=== PATIENT | female | born 1980 | race Caucasian/White ===

== ENCOUNTER 2016-10-05 08:40 | Inpatient (IN) | payer MEDICAID, SELFPAY ==
[~2016-10-05] VITALS: Ht 170.2 cm; Wt 68.0 kg
[~2016-10-05 08:40] MED LIST: LITH300C3 PO; QUET200T PO
[2016-10-05] MEDS ORDERED: LORazepam 2 MG TABLET PO ONE (10:00)
[2016-10-05] MEDS ORDERED: ZIPRASIDONE HCL 20 MG CAPSULE PO ONE (10:00)
[2016-10-05 10:04] LABS: BASOPHILS % (AUTO) 0.2 % (0.0-2.0); EOSINOPHILS % (AUTO) 1.6 % (1.0-6.0); HEMATOCRIT 41.2 % (36-46); HEMOGLOBIN 13.7 g/dL (12.0-16.0); LYMPHOCYTES # (AUTO) 1.2 K/uL (1.0-4.8); LYMPHOCYTES % (AUTO) 16.5 % (22.0-44.0); MEAN CORPUSCULAR HEMOGLOBIN 30.2 pg (26.0-34.0); MEAN CORPUSCULAR HGB CONC 33.3 G/dL (31.0-37.0); MEAN CORPUSCULAR VOLUME 91 fL (80-100); MONOCYTES # (AUTO) 0.4 K/uL (0.1-1.0); MONOCYTES % (AUTO) 5.4 % (2.0-9.0); NEUTROPHILS # (AUTO) 5.4 K/uL (1.8-7.7); NEUTROPHILS % (AUTO) 76.3 % (40.0-70.0); PLATELET COUNT (AUTO) 258 K/uL (150-450); RED BLOOD CELL COUNT(AUTO) 4.55 MIL/uL (4.00-5.20); RED CELL DISTRIBUTION WIDTH 12.5 % (11.5-14.5); WHITE BLOOD COUNT (AUTO) 7.1 K/uL (4.5-11.0)
[2016-10-05 10:16] LABS: ANION GAP 9 mmol/L (8-16); CALCIUM, TOTAL 8.8 mg/dL (8.8-10.5); CARBON DIOXIDE 26 mmol/L (22-29); CHLORIDE 104 mmol/L (98-107); GLOMERULAR FILTR. RATE CALC > 60 mL/min (>60); POTASSIUM 3.8 mmol/L (3.5-5.1); SODIUM SERUM 139 mmol/L (136-145); UREA NITROGEN, BLOOD 8 mg/dL (7-18)
[2016-10-05 10:20] LABS: ALANINE AMINOTRANSFERASE 18 U/L (12-78); ALBUMIN 3.6 g/dL (3.4-5.0); ASPARTATE AMINOTRANSFERASE 17 U/L (15-37); BILIRUBIN,TOTAL 0.8 mg/dL (0.1-1.0); TOTAL PROTEIN, SERUM 6.8 g/dL (6.4-8.2)
[2016-10-05 10:25] LABS: LITHIUM < 0.20 mmol/L (0.60-1.20)
[2016-10-05] MEDS ORDERED: ZOLPIDEM TARTRATE 10 MG TABLET PO PRN (10:45)
[2016-10-05] MEDS ORDERED: LORazepam 2 MG TABLET PO PRN (10:45)
[2016-10-05] MEDS ORDERED: QUEtiapine FUMARATE 100 MG TABLET PO PRN (10:45)
[2016-10-05 13:31] VITALS: BP 133/72
[2016-10-05] MEDS ORDERED: INFLUENZA VIRUS VACCINE QVS 2016-17 (3YR+)/PF 60 MCG/0.5 ML SYRINGE IM ONE (14:00)
[2016-10-05] MEDS ORDERED: PROMETHAZINE HCL 25 MG TABLET PO PRN (14:30)
[2016-10-05] MEDS ORDERED: HydrOXYzine PAMOATE 50 MG CAPSULE PO PRN (14:30)
[2016-10-05] MEDS ORDERED: MAG HYDROX/AL HYDROX/SIMETH ES 30 ML SUSPENSION UDCUP PO PRN (14:30)
[2016-10-05] MEDS ORDERED: TUBERCULIN, PURIFIED PROTEIN DERIVATIVE 5 TU/0.1 ML SYG ID ONE (14:30)
[2016-10-05] MEDS ORDERED: ACETAMINOPHEN 325 MG TABLET PO PRN (14:30)
[2016-10-05] MEDS ORDERED: GuaiFENesin/D-METHORPHAN [SUGAR-FREE] 200-20MG/10 ML SYRUP UDCUP PO PRN (14:30)
[2016-10-05] MEDS ORDERED: LOPERAMIDE HCL 2 MG CAPSULE PO PRN (14:30)
[2016-10-05] MEDS ORDERED: MAGNESIUM HYDROXIDE SUSPENSION 30 ML UDCUP PO PRN (14:30)
[2016-10-05 16:02] VITALS: BP 108/60
[2016-10-05] MEDS: THIAMINE HCL 100 MG TABLET PO SCH (16:26)
[2016-10-05] MEDS: LITHIUM CARBONATE 600 MG CAPSULE PO SCH (16:26)
[2016-10-05] MEDS: DIVALPROEX SODIUM 250 MG ER TABLET PO SCH (20:29)
[2016-10-05] MEDS ORDERED: QUEtiapine FUMARATE 200 MG TABLET PO SCH (21:00)
[2016-10-06 07:09] VITALS: BP 122/70
[2016-10-06 08:49] VITALS: BP 104/67
[2016-10-06] MEDS: THIAMINE HCL 100 MG TABLET PO SCH ×2 (09:30→16:25)
[2016-10-06] MEDS: MULTIVITAMINS WITH MINERALS, THERAPEUTIC TABLET PO SCH (09:30)
[2016-10-06] MEDS: LITHIUM CARBONATE 600 MG CAPSULE PO SCH ×2 (09:30→16:25)
[2016-10-06] MEDS: FOLIC ACID 1 MG TABLET PO SCH (09:41)
[2016-10-06 16:20] VITALS: BP 112/74
[2016-10-06] MEDS: DIVALPROEX SODIUM 250 MG ER TABLET PO SCH (20:31)
[2016-10-06] MEDS: QUEtiapine FUMARATE 200 MG TABLET PO SCH (20:32)
[2016-10-07 02:21] VITALS: BP 123/71
[2016-10-07 07:46] LABS: LITHIUM 0.49 mmol/L (0.60-1.20)
[2016-10-07 08:32] VITALS: BP 110/65
[2016-10-07] MEDS: MULTIVITAMINS WITH MINERALS, THERAPEUTIC TABLET PO SCH ×2 (09:00→09:25)
[2016-10-07] MEDS: THIAMINE HCL 100 MG TABLET PO SCH ×2 (09:25→16:14)
[2016-10-07] MEDS: FOLIC ACID 1 MG TABLET PO SCH (09:25)
[2016-10-07] MEDS: LITHIUM CARBONATE 600 MG CAPSULE PO SCH ×2 (09:25→16:14)
[2016-10-07 16:00] VITALS: BP 106/63
[2016-10-07] MEDS: DIVALPROEX SODIUM 250 MG ER TABLET PO SCH (20:28)
[2016-10-07] MEDS: QUEtiapine FUMARATE 200 MG TABLET PO SCH (21:00)
[2016-10-08 06:27] VITALS: BP 110/64
[2016-10-08 08:39] VITALS: BP 113/63
[2016-10-08] MEDS: THIAMINE HCL 100 MG TABLET PO SCH ×2 (09:15→16:24)
[2016-10-08] MEDS: MULTIVITAMINS, THERAPEUTIC TABLET PO SCH (09:15)
[2016-10-08] MEDS: LITHIUM CARBONATE 600 MG CAPSULE PO SCH ×2 (09:15→16:24)
[2016-10-08] MEDS: FOLIC ACID 1 MG TABLET PO SCH (09:15)
[2016-10-08 16:47] VITALS: BP 126/64
[2016-10-08] MEDS: DIVALPROEX SODIUM 250 MG ER TABLET PO SCH (20:39)
[2016-10-08] MEDS: QUEtiapine FUMARATE 200 MG TABLET PO SCH (21:00)
[2016-10-09 07:15] VITALS: BP 117/80
[2016-10-09 08:47] VITALS: BP 104/59
[2016-10-09] MEDS: FOLIC ACID 1 MG TABLET PO SCH (09:22)
[2016-10-09] MEDS: THIAMINE HCL 100 MG TABLET PO SCH ×2 (09:22→16:14)
[2016-10-09] MEDS: LITHIUM CARBONATE 600 MG CAPSULE PO SCH ×2 (09:23→16:14)
[2016-10-09] MEDS: MULTIVITAMINS, THERAPEUTIC TABLET PO SCH (09:23)
[2016-10-09] MEDS ORDERED: DIVA250T45 PO (14:43)
[2016-10-09] MEDS ORDERED: LITH600 PO (14:43)
[2016-10-09] MEDS ORDERED: QUET200T29 PO (14:43)
[2016-10-09 16:06] VITALS: BP 109/59
[2016-10-09] MEDS: DIVALPROEX SODIUM 250 MG ER TABLET PO SCH (20:15)
[2016-10-09] MEDS: QUEtiapine FUMARATE 200 MG TABLET PO SCH (21:00)
[2016-10-10 01:08] VITALS: BP 110/64
[2016-10-10] MEDS: MULTIVITAMINS, THERAPEUTIC TABLET PO SCH (08:32)
[2016-10-10] MEDS: THIAMINE HCL 100 MG TABLET PO SCH (08:32)
[2016-10-10] MEDS: LITHIUM CARBONATE 600 MG CAPSULE PO SCH (08:32)
[2016-10-10] MEDS: FOLIC ACID 1 MG TABLET PO SCH (08:32)
[2016-10-10 08:44] VITALS: BP 113/73
[2016-10-10] MEDS ORDERED: DIVA250T45 PO (10:20)
[2016-10-10] MEDS ORDERED: QUET200T PO (10:20)
== END 2016-10-10 14:50 | disposition home or self-care (01) | DRG 885 ==
LOC: EEVIPCON 08:42 → EMS 08:42 → B3A 11:34
PROVIDERS: ADMIT Psychiatry & Neurology Psychiatry; ATTEND Psychiatry & Neurology Psychiatry
DX: F25.0 Schizoaffective disorder, bipolar type (principal); F17.210 Nicotine dependence, cigarettes, uncomplicated; G40.909 Epilepsy, unspecified, not intractable, without status epilepticus; M25.559 Pain in unspecified hip; Z88.8 Allergy status to other drugs, medicaments and biological substances; Z79.899 Other long term (current) drug therapy; Z59.0 Homelessness; Z98.890 Other specified postprocedural states; Z85.820 Personal history of malignant melanoma of skin; Z28.21 Immunization not carried out because of patient refusal; Z91.048 Other nonmedicinal substance allergy status; Z91.19 Patient's noncompliance with other medical treatment and regimen
CPT/HCPCS: 99285; A0429; G0480

== ENCOUNTER 2018-02-28 10:14 | Inpatient (IN) | payer MEDICARE ==
[~2018-02-28] VITALS: Ht 172.7 cm; Wt 69.4 kg
[~2018-02-28 10:14] MED LIST changes: +DIVA250T45 PO; +LITH600 PO; +QUET200T29 PO
[2018-02-28 10:21] VITALS: BP 130/87
[2018-02-28] MEDS ORDERED: ZOLPIDEM TARTRATE 10 MG TABLET PO PRN (10:30)
[2018-02-28] MEDS ORDERED: SPIR50 PO (11:41)
[2018-02-28] MEDS ORDERED: MINO100 PO (11:41)
[2018-02-28 13:10] VITALS: BP 133/97
[2018-02-28 16:16] VITALS: BP 113/79
[2018-02-28] MEDS: LORazepam 2 MG TABLET PO PRN (16:52)
[2018-02-28] MEDS: DIVALPROEX SODIUM 500 MG ER TABLET PO SCH (21:17)
[2018-03-01 08:15] VITALS: BP 118/91
[2018-03-01 08:56] LABS: BASOPHILS % (AUTO) 0.8 % (0.0-2.0); EOSINOPHILS % (AUTO) 3.8 % (1.0-6.0); HEMATOCRIT 43.4 % (36-46); HEMOGLOBIN 15.1 g/dL (12.0-16.0); LYMPHOCYTES # (AUTO) 1.7 K/uL (1.0-4.8); LYMPHOCYTES % (AUTO) 47.9 % (22.0-44.0); MEAN CORPUSCULAR HEMOGLOBIN 31.8 pg (26.0-34.0); MEAN CORPUSCULAR HGB CONC 34.8 G/dL (31.0-37.0); MEAN CORPUSCULAR VOLUME 91 fL (80-100); MONOCYTES # (AUTO) 0.4 K/uL (0.1-1.0); NEUTROPHILS # (AUTO) 1.2 K/uL (1.8-7.7); NEUTROPHILS % (AUTO) 35.5 % (40.0-70.0); PLATELET COUNT (AUTO) 219 K/uL (150-450); RED BLOOD CELL COUNT(AUTO) 4.76 MIL/uL (4.00-5.20); RED CELL DISTRIBUTION WIDTH 13.3 % (11.5-14.5)
[2018-03-01 09:35] LABS: ALANINE AMINOTRANSFERASE 30 U/L (12-78); ALBUMIN 3.3 g/dL (3.4-5.0); ALKALINE PHOSPHATASE 43 U/L (46-116); ANION GAP 5 mmol/L (8-16); ASPARTATE AMINOTRANSFERASE 23 U/L (15-37); BILIRUBIN,TOTAL 0.6 mg/dL (0.1-1.0); CALCIUM, TOTAL 8.8 mg/dL (8.8-10.5); CARBON DIOXIDE 30 mmol/L (22-29); CHLORIDE 107 mmol/L (98-107); CHOL/HDL RATIO 3.2 (3.9-5.7); CHOLESTEROL 167 mg/dL (131-200); CREATININE 0.79 mg/dL (0.60-1.30); FREE T4 (FREE THYROXINE) 0.74 ng/dL (0.76-1.46); GLOMERULAR FILTR. RATE CALC > 60 mL/min (>60); GLUCOSE,RANDOM 61 mg/dL (70-110); HDL CHOLESTEROL 53 mg/dL (40-60); LDL CHOL (CALC.) 96 mg/dL (0-130); POTASSIUM 3.8 mmol/L (3.5-5.1); SODIUM SERUM 142 mmol/L (136-145); THYROID STIMULATING HORMONE 1.92 uIU/mL (0.36-3.74); TOTAL PROTEIN, SERUM 6.5 g/dL (6.4-8.2); TRIGLYCERIDES 90 mg/dL (15-150); UREA NITROGEN, BLOOD 18 mg/dL (7-18)
[2018-03-01] MEDS ORDERED: ONDANSETRON HCL 4 MG TABLET PO PRN (11:15)
[2018-03-01] MEDS ORDERED: MAG HYDROX/AL HYDROX/SIMETH ES 30 ML SUSPENSION UDCUP PO PRN (11:15)
[2018-03-01] MEDS ORDERED: ACETAMINOPHEN 325 MG TABLET PO PRN (11:15)
[2018-03-01] MEDS ORDERED: MAGNESIUM HYDROXIDE SUSPENSION 30 ML UDCUP PO PRN (11:15)
[2018-03-01] MEDS ORDERED: IBUPROFEN 400 MG TABLET PO PRN (11:15)
[2018-03-01] MEDS ORDERED: ALBUTEROL SULFATE HFA 90 MCG/PUFF 8 GM INHALER IH PRN (11:15)
[2018-03-01] MEDS ORDERED: CloNIDine HCL 0.1 MG TABLET PO PRN (11:15)
[2018-03-01] MEDS ORDERED: LOPERAMIDE HCL 2 MG CAPSULE PO PRN (11:15)
[2018-03-01] MEDS ORDERED: DOCUSATE SODIUM 100 MG CAPSULE PO PRN (11:15)
[2018-03-01] MEDS ORDERED: PETROLATUM,WHITE 71 GM JELLY TP PRN (11:15)
[2018-03-01] MEDS: SPIRONOLACTONE 50 MG TABLET PO SCH (16:34)
[2018-03-01] MEDS: LORazepam 2 MG TABLET PO PRN (16:34)
[2018-03-01 16:48] VITALS: BP 107/64
[2018-03-01] MEDS: DIVALPROEX SODIUM 500 MG ER TABLET PO SCH (20:34)
[2018-03-02 02:35] VITALS: BP 124/83
[2018-03-02 08:28] VITALS: BP 122/74
[2018-03-02] MEDS: SPIRONOLACTONE 50 MG TABLET PO SCH ×2 (08:33→16:34)
[2018-03-02] MEDS: ARIPiprazole 10 MG TABLET PO SCH (08:33)
[2018-03-02] MEDS: NICOTINE 14 MG/24 HOUR PATCH TD SCH (08:33)
[2018-03-02] MEDS: MINOCYCLINE HCL 100 MG CAPSULE PO SCH (08:33)
[2018-03-02 16:05] VITALS: BP 113/90
[2018-03-02] MEDS: LORazepam 2 MG TABLET PO PRN (19:44)
[2018-03-03 08:35] VITALS: BP 124/76
[2018-03-03] MEDS: ARIPiprazole 10 MG TABLET PO SCH (08:37)
[2018-03-03] MEDS: SPIRONOLACTONE 50 MG TABLET PO SCH ×2 (08:37→16:22)
[2018-03-03] MEDS: MINOCYCLINE HCL 100 MG CAPSULE PO SCH (08:37)
[2018-03-03] MEDS: NICOTINE 14 MG/24 HOUR PATCH TD SCH (08:42)
[2018-03-03 08:50] LABS: BASOPHILS % (AUTO) 0.9 % (0.0-2.0); EOSINOPHILS % (AUTO) 2.7 % (1.0-6.0); HEMATOCRIT 46.8 % (36-46); HEMOGLOBIN 16.5 g/dL (12.0-16.0); LYMPHOCYTES # (AUTO) 2.4 K/uL (1.0-4.8); LYMPHOCYTES % (AUTO) 60.8 % (22.0-44.0); MEAN CORPUSCULAR HEMOGLOBIN 32.1 pg (26.0-34.0); MEAN CORPUSCULAR HGB CONC 35.2 G/dL (31.0-37.0); MEAN CORPUSCULAR VOLUME 91 fL (80-100); MONOCYTES # (AUTO) 0.3 K/uL (0.1-1.0); MONOCYTES % (AUTO) 8.6 % (2.0-9.0); NEUTROPHILS # (AUTO) 1.1 K/uL (1.8-7.7); PLATELET COUNT (AUTO) 238 K/uL (150-450); RED BLOOD CELL COUNT(AUTO) 5.14 MIL/uL (4.00-5.20); RED CELL DISTRIBUTION WIDTH 13.2 % (11.5-14.5)
[2018-03-03 08:59] LABS: HEMOGLOBIN A1C 5.1 % (4.5-6.2)
[2018-03-03 09:00] LABS: BILIRUBIN,URINE NEGATIVE (NEGATIVE); GLUCOSE, URINE (UA) NEGATIVE (NEGATIVE); KETONES,URINE NEGATIVE (NEGATIVE); LEUKOCYTE ESTERASE ,URINE NEGATIVE (NEGATIVE); NITRATE,URINE NEGATIVE (NEGATIVE); OCCULT BLOOD,URINE TRACE (NEGATIVE); PH,URINE 7.5 (5.0-8.0); PROTEIN,URINE NEGATIVE (NEGATIVE); UROBILINOGEN,URINE 0.2 mg/dL (<=1.0)
[2018-03-03 09:03] LABS: AMPHET/METH SCREEN,URINE NEGATIVE (NEGATIVE); BARBITURATE SCREEN, URINE NEGATIVE (NEGATIVE); BENZODIAZEPINES SCREEN,URINE NEGATIVE (NEGATIVE); CANNABINOID SCREEN,URINE NEGATIVE (NEGATIVE); COCAINE SCREEN,URINE NEGATIVE (NEGATIVE); METHADONE SCREEN, URINE NEGATIVE (NEGATIVE); OPIATE SCREEN,URINE NEGATIVE (NEGATIVE)
[2018-03-03 09:04] LABS: PHENCYCLIDINE SCREEN,URINE NEGATIVE (NEGATIVE)
[2018-03-03 09:06] LABS: APPEARANCE,URINE SLIGHTLY CLOUDY (CLEAR)
[2018-03-03 09:08] LABS: BACTERIA,URINE Few /HPF (None Seen); RBC,URINE 0-2 /HPF (0-2); SQUAMOUS EPITHELIAL CELL,UR Many /LPF (None Seen); WBC,URINE None Seen /HPF (0-5)
[2018-03-03 09:12] LABS: FOLATE SERUM 13.7 ng/mL (5.4-)
[2018-03-03 09:17] LABS: CHOL/HDL RATIO 3.1 (3.9-5.7); THYROID STIMULATING HORMONE 3.16 uIU/mL (0.36-3.74)
[2018-03-03 16:20] VITALS: BP 118/80
[2018-03-03] MEDS: LORazepam 2 MG TABLET PO PRN (16:22)
[2018-03-04 05:42] VITALS: BP 111/78
[2018-03-04] MEDS: MINOCYCLINE HCL 100 MG CAPSULE PO SCH (08:32)
[2018-03-04] MEDS: SPIRONOLACTONE 50 MG TABLET PO SCH ×2 (08:32→16:40)
[2018-03-04] MEDS: ARIPiprazole 10 MG TABLET PO SCH (08:32)
[2018-03-04] MEDS: NICOTINE 14 MG/24 HOUR PATCH TD SCH (08:37)
[2018-03-04 09:32] VITALS: BP 136/78
[2018-03-04] MEDS: LORazepam 2 MG TABLET PO PRN (14:07)
[2018-03-04] MEDS ORDERED: DIVA500T52 PO (14:09)
[2018-03-04 16:17] VITALS: BP 109/78
[2018-03-05] MEDS: LORazepam 2 MG TABLET PO PRN ×2 (00:12→14:21)
[2018-03-05 00:13] VITALS: BP 121/71
[2018-03-05 08:00] VITALS: BP 129/82
[2018-03-05] MEDS ORDERED: ARIPiprazole 15 MG TABLET PO SCH (09:00)
[2018-03-05] MEDS: NICOTINE 14 MG/24 HOUR PATCH TD SCH (09:00)
[2018-03-05] MEDS: MINOCYCLINE HCL 100 MG CAPSULE PO SCH (09:50)
[2018-03-05] MEDS: SPIRONOLACTONE 50 MG TABLET PO SCH ×2 (09:50→16:44)
[2018-03-05 16:00] VITALS: BP 108/73
[2018-03-06 04:50] VITALS: BP 140/109
[2018-03-06] MEDS: LORazepam 2 MG TABLET PO PRN ×2 (04:53→16:08)
[2018-03-06 08:30] VITALS: BP 120/74
[2018-03-06] MEDS: SPIRONOLACTONE 50 MG TABLET PO SCH ×2 (08:45→17:15)
[2018-03-06] MEDS: MINOCYCLINE HCL 100 MG CAPSULE PO SCH (08:46)
[2018-03-06] MEDS: ARIPiprazole 10 MG TABLET PO SCH (08:46)
[2018-03-06] MEDS: NICOTINE 14 MG/24 HOUR PATCH TD SCH (08:47)
[2018-03-06 09:05] LABS: EOSINOPHILS % (AUTO) 2.2 % (1.0-6.0); HEMOGLOBIN 14.7 g/dL (12.0-16.0); LYMPHOCYTES % (AUTO) 49.4 % (22.0-44.0); MEAN CORPUSCULAR HEMOGLOBIN 31.9 pg (26.0-34.0); MEAN CORPUSCULAR HGB CONC 35.9 G/dL (31.0-37.0); MEAN CORPUSCULAR VOLUME 89 fL (80-100); MONOCYTES # (AUTO) 0.4 K/uL (0.1-1.0); NEUTROPHILS # (AUTO) 1.5 K/uL (1.8-7.7); NEUTROPHILS % (AUTO) 37.4 % (40.0-70.0); PLATELET COUNT (AUTO) 208 K/uL (150-450); RED CELL DISTRIBUTION WIDTH 13.3 % (11.5-14.5)
[2018-03-06 16:00] VITALS: BP 116/80
[2018-03-07 00:57] VITALS: BP 113/78
[2018-03-07] MEDS: LORazepam 2 MG TABLET PO PRN ×2 (01:01→09:02)
[2018-03-07 08:23] VITALS: BP 126/81
[2018-03-07] MEDS ORDERED: ARIP10TA8 PO (08:32)
[2018-03-07] MEDS: NICOTINE 14 MG/24 HOUR PATCH TD SCH (09:00)
[2018-03-07] MEDS: SPIRONOLACTONE 50 MG TABLET PO SCH (10:00)
[2018-03-07] MEDS: ARIPiprazole 10 MG TABLET PO SCH (10:00)
[2018-03-07] MEDS: MINOCYCLINE HCL 100 MG CAPSULE PO SCH (10:00)
== END 2018-03-07 13:43 | disposition home or self-care (01) | DRG 885 ==
LOC: B3A 10:36
PROVIDERS: ADMIT Psychiatry & Neurology Psychiatry; ATTEND Psychiatry & Neurology Psychiatry
DX: F25.9 Schizoaffective disorder, unspecified (principal); F41.9 Anxiety disorder, unspecified; E02 Subclinical iodine-deficiency hypothyroidism; G40.909 Epilepsy, unspecified, not intractable, without status epilepticus; D72.819 Decreased white blood cell count, unspecified; R45.87 Impulsiveness; F31.9 Bipolar disorder, unspecified; Z59.0 Homelessness; F10.10 Alcohol abuse, uncomplicated
CPT/HCPCS: 80307; 82607; 82746; 83036; 84439; 84443

== ENCOUNTER 2019-11-29 00:33 | Inpatient (IN) | payer MEDICARE, MEDICAID ==
[~2019-11-29] VITALS: Ht 167.6 cm; Wt 73.5 kg
[~2019-11-29 00:33] MED LIST changes: +ARIP10TA8 PO; -DIVA250T45 PO; -LITH300C3 PO; -LITH600 PO; +MINO100 PO; -QUET200T PO; -QUET200T29 PO; +SPIR50 PO
[2019-11-29 01:14] LABS: AMPHET/METH SCREEN,URINE NEGATIVE (NEGATIVE); BARBITURATE SCREEN, URINE NEGATIVE (NEGATIVE); BENZODIAZEPINES SCREEN,URINE NEGATIVE (NEGATIVE); CANNABINOID SCREEN,URINE NEGATIVE (NEGATIVE); COCAINE SCREEN,URINE NEGATIVE (NEGATIVE); METHADONE SCREEN, URINE NEGATIVE (NEGATIVE); OPIATE SCREEN,URINE NEGATIVE (NEGATIVE)
[2019-11-29 01:37] LABS: PHENCYCLIDINE SCREEN,URINE NEGATIVE (NEGATIVE)
[2019-11-29 02:07] LABS: BASOPHILS % (AUTO) 0.7 % (0.0-2.0); EOSINOPHILS % (AUTO) 1.9 % (1.0-6.0); HEMOGLOBIN 14.5 g/dL (12.0-16.0); LYMPHOCYTES % (AUTO) 32.3 % (22.0-44.0); MEAN CORPUSCULAR HGB CONC 33.7 G/dL (31.0-37.0); MEAN CORPUSCULAR VOLUME 92 fL (80-100); MONOCYTES # (AUTO) 1.4 K/uL (0.1-1.0); MONOCYTES % (AUTO) 15.2 % (2.0-9.0); NEUTROPHILS # (AUTO) 4.7 K/uL (1.8-7.7); NEUTROPHILS % (AUTO) 49.9 % (40.0-70.0); PLATELET COUNT (AUTO) 142 K/uL (150-450); RED BLOOD CELL COUNT(AUTO) 4.67 MIL/uL (4.00-5.20); RED CELL DISTRIBUTION WIDTH 12.7 % (11.5-14.5)
[2019-11-29 02:23] LABS: ANION GAP 7 mmol/L (8-16); CALCIUM, TOTAL 9.5 mg/dL (8.8-10.5); CARBON DIOXIDE 29 mmol/L (22-29); CHLORIDE 105 mmol/L (98-107); CREATININE 0.82 mg/dL (0.60-1.30); GLOMERULAR FILTR. RATE CALC > 60 mL/min (>60); GLUCOSE,RANDOM 72 mg/dL (70-110); POTASSIUM 3.6 mmol/L (3.5-5.1); SODIUM SERUM 141 mmol/L (136-145); UREA NITROGEN, BLOOD 18 mg/dL (7-18)
[2019-11-29 02:32] LABS: ALANINE AMINOTRANSFERASE 21 U/L (12-78); ALBUMIN 3.9 g/dL (3.4-5.0); ALKALINE PHOSPHATASE 56 U/L (46-116); ASPARTATE AMINOTRANSFERASE 19 U/L (15-37); BILIRUBIN,TOTAL 0.4 mg/dL (0.1-1.0); HCG,QUANTITATIVE < 1 mIU/mL (0-6)
[2019-11-29 05:04] VITALS: BP 140/91
[2019-11-29] MEDS: LORazepam 2 MG TABLET PO PRN ×3 (05:07→17:47)
[2019-11-29 08:39] VITALS: BP 126/83
[2019-11-29] MEDS ORDERED: GuaiFENesin/D-METHORPHAN [SUGAR-FREE] 200-20MG/10 ML SYRUP UDCUP PO PRN (10:45)
[2019-11-29] MEDS ORDERED: PETROLATUM,WHITE 28 GM JELLY TP PRN (10:45)
[2019-11-29] MEDS ORDERED: CloNIDine HCL 0.1 MG TABLET PO PRN (10:45)
[2019-11-29] MEDS ORDERED: MAG HYDROX/AL HYDROX/SIMETH ES 30 ML SUSPENSION UDCUP PO PRN (10:45)
[2019-11-29] MEDS ORDERED: ONDANSETRON HCL 4 MG TABLET PO PRN (10:45)
[2019-11-29] MEDS ORDERED: ACETAMINOPHEN 325 MG TABLET PO PRN (10:45)
[2019-11-29] MEDS ORDERED: DOCUSATE SODIUM 100 MG CAPSULE PO PRN (10:45)
[2019-11-29] MEDS ORDERED: NICOTINE 14 MG/24 HOUR PATCH TD PRN (10:45)
[2019-11-29] MEDS ORDERED: ALBUTEROL SULFATE HFA 90 MCG/PUFF 8 GM INHALER IH PRN (10:45)
[2019-11-29] MEDS ORDERED: MAGNESIUM HYDROXIDE SUSPENSION 30 ML UDCUP PO PRN (10:45)
[2019-11-29] MEDS ORDERED: LOPERAMIDE HCL 2 MG CAPSULE PO PRN (10:45)
[2019-11-29] MEDS: ARIPiprazole 10 MG TABLET PO SCH (12:30)
[2019-11-29 16:20] VITALS: BP 126/71
[2019-11-29] MEDS: SPIRONOLACTONE 50 MG TABLET PO SCH (17:49)
[2019-11-29] MEDS: LevETIRAcetam 250 MG TABLET PO SCH (21:03)
[2019-11-30 03:34] VITALS: BP 122/81
[2019-11-30 08:13] VITALS: BP 139/84
[2019-11-30] MEDS: ARIPiprazole 10 MG TABLET PO SCH (09:13)
[2019-11-30] MEDS: SPIRONOLACTONE 50 MG TABLET PO SCH ×2 (09:13→16:32)
[2019-11-30] MEDS: LevETIRAcetam 250 MG TABLET PO SCH ×2 (09:13→16:32)
[2019-11-30] MEDS: MINOCYCLINE HCL 100 MG CAPSULE PO SCH (09:13)
[2019-11-30 16:12] VITALS: BP 111/70
[2019-11-30] MEDS: LORazepam 2 MG TABLET PO PRN (20:13)
[2019-11-30] MEDS: DIVALPROEX SODIUM 500 MG DR TABLET PO SCH (20:34)
[2019-12-01 01:19] VITALS: BP 127/81
[2019-12-01 07:50] LABS: CHOL/HDL RATIO 2.6 (3.9-5.7)
[2019-12-01 08:21] VITALS: BP 117/77
[2019-12-01] MEDS: DIVALPROEX SODIUM 500 MG DR TABLET PO SCH ×2 (08:46→20:40)
[2019-12-01] MEDS: SPIRONOLACTONE 50 MG TABLET PO SCH ×2 (08:46→17:24)
[2019-12-01] MEDS: ARIPiprazole 10 MG TABLET PO SCH (08:46)
[2019-12-01] MEDS: LevETIRAcetam 250 MG TABLET PO SCH ×2 (08:46→17:24)
[2019-12-01] MEDS: MINOCYCLINE HCL 100 MG CAPSULE PO SCH (08:48)
[2019-12-01 16:13] VITALS: BP 105/67
[2019-12-01 22:17] VITALS: BP 112/78
[2019-12-01] MEDS: IBUPROFEN 400 MG TABLET PO PRN (22:17)
[2019-12-02] MEDS: LORazepam 2 MG TABLET PO PRN ×2 (00:57→20:36)
[2019-12-02 01:47] VITALS: BP 119/91
[2019-12-02 08:34] VITALS: BP 105/67
[2019-12-02] MEDS: MINOCYCLINE HCL 100 MG CAPSULE PO SCH (09:45)
[2019-12-02] MEDS: DIVALPROEX SODIUM 500 MG DR TABLET PO SCH ×2 (09:46→20:36)
[2019-12-02] MEDS: LevETIRAcetam 250 MG TABLET PO SCH ×2 (09:46→17:51)
[2019-12-02] MEDS: ARIPiprazole 10 MG TABLET PO SCH (09:46)
[2019-12-02] MEDS: SPIRONOLACTONE 50 MG TABLET PO SCH ×2 (09:46→17:51)
[2019-12-02 16:39] VITALS: BP 103/73
[2019-12-02 17:51] VITALS: BP 110/68
[2019-12-03 06:10] VITALS: BP 107/64
[2019-12-03 08:14] VITALS: BP 117/79
[2019-12-03] MEDS: MINOCYCLINE HCL 100 MG CAPSULE PO SCH (08:35)
[2019-12-03] MEDS: SPIRONOLACTONE 50 MG TABLET PO SCH ×2 (08:35→16:29)
[2019-12-03] MEDS: LevETIRAcetam 250 MG TABLET PO SCH ×2 (08:35→16:29)
[2019-12-03] MEDS: DIVALPROEX SODIUM 500 MG DR TABLET PO SCH ×2 (08:37→20:37)
[2019-12-03] MEDS: ARIPiprazole 10 MG TABLET PO SCH (08:40)
[2019-12-03 08:41] VITALS: BP 109/75
[2019-12-03] MEDS: IBUPROFEN 400 MG TABLET PO PRN (08:41)
[2019-12-03 16:48] VITALS: BP 114/71
[2019-12-03] MEDS: LORazepam 2 MG TABLET PO PRN (19:59)
[2019-12-04 02:23] VITALS: BP 114/89
[2019-12-04] MEDS: IBUPROFEN 400 MG TABLET PO PRN ×2 (02:24→22:23)
[2019-12-04 08:26] VITALS: BP 119/61
[2019-12-04] MEDS: LevETIRAcetam 250 MG TABLET PO SCH ×2 (09:11→16:32)
[2019-12-04] MEDS: SPIRONOLACTONE 50 MG TABLET PO SCH ×2 (09:11→16:32)
[2019-12-04] MEDS: DIVALPROEX SODIUM 500 MG DR TABLET PO SCH ×2 (09:11→20:37)
[2019-12-04] MEDS: ARIPiprazole 10 MG TABLET PO SCH (09:11)
[2019-12-04] MEDS: MINOCYCLINE HCL 100 MG CAPSULE PO SCH (09:11)
[2019-12-04 16:15] VITALS: BP 116/73
[2019-12-04] MEDS: LORazepam 2 MG TABLET PO PRN (19:16)
[2019-12-04 22:21] VITALS: BP 110/72
[2019-12-05 05:42] VITALS: BP 121/73
[2019-12-05 08:28] VITALS: BP 110/69
[2019-12-05] MEDS: ARIPiprazole 15 MG TABLET PO SCH (08:40)
[2019-12-05] MEDS: SPIRONOLACTONE 50 MG TABLET PO SCH ×2 (08:40→16:27)
[2019-12-05] MEDS: LevETIRAcetam 250 MG TABLET PO SCH ×2 (08:40→16:27)
[2019-12-05] MEDS: MINOCYCLINE HCL 100 MG CAPSULE PO SCH (08:41)
[2019-12-05] MEDS: DIVALPROEX SODIUM 500 MG DR TABLET PO SCH ×2 (08:42→20:40)
[2019-12-05 09:21] VITALS: BP 118/73
[2019-12-05] MEDS: IBUPROFEN 400 MG TABLET PO PRN ×2 (09:21→17:31)
[2019-12-05 16:15] VITALS: BP 124/72
[2019-12-05] MEDS: LORazepam 2 MG TABLET PO PRN (17:30)
[2019-12-05] MEDS: ZOLPIDEM TARTRATE 10 MG TABLET PO PRN (20:49)
[2019-12-06 01:20] VITALS: BP 135/89
[2019-12-06] MEDS: LORazepam 2 MG TABLET PO PRN ×2 (03:15→20:40)
[2019-12-06 08:09] VITALS: BP 110/71
[2019-12-06] MEDS: DIVALPROEX SODIUM 500 MG DR TABLET PO SCH ×2 (08:48→20:40)
[2019-12-06] MEDS: ARIPiprazole 15 MG TABLET PO SCH (08:49)
[2019-12-06] MEDS: SPIRONOLACTONE 50 MG TABLET PO SCH ×2 (08:49→16:28)
[2019-12-06] MEDS: LevETIRAcetam 250 MG TABLET PO SCH ×2 (08:49→16:28)
[2019-12-06] MEDS: MINOCYCLINE HCL 100 MG CAPSULE PO SCH (08:49)
[2019-12-06 16:00] VITALS: BP 122/74
[2019-12-07 03:02] VITALS: BP 116/70
[2019-12-07] MEDS: LORazepam 2 MG TABLET PO PRN ×2 (03:11→16:39)
[2019-12-07 08:38] VITALS: BP 100/63
[2019-12-07] MEDS: SPIRONOLACTONE 50 MG TABLET PO SCH ×2 (08:48→16:28)
[2019-12-07] MEDS: ARIPiprazole 15 MG TABLET PO SCH (08:48)
[2019-12-07] MEDS: DIVALPROEX SODIUM 500 MG DR TABLET PO SCH ×2 (08:48→20:44)
[2019-12-07] MEDS: LevETIRAcetam 250 MG TABLET PO SCH ×2 (08:48→16:28)
[2019-12-07] MEDS: MINOCYCLINE HCL 100 MG CAPSULE PO SCH (08:49)
[2019-12-07 16:22] VITALS: BP 107/68
[2019-12-07] MEDS: ZOLPIDEM TARTRATE 10 MG TABLET PO PRN (20:45)
[2019-12-08 05:21] VITALS: BP 118/68
[2019-12-08 08:34] VITALS: BP 106/63
[2019-12-08] MEDS: DIVALPROEX SODIUM 500 MG DR TABLET PO SCH ×2 (08:57→20:43)
[2019-12-08] MEDS: ARIPiprazole 15 MG TABLET PO SCH (08:58)
[2019-12-08] MEDS: SPIRONOLACTONE 50 MG TABLET PO SCH ×2 (08:58→16:21)
[2019-12-08] MEDS: MINOCYCLINE HCL 100 MG CAPSULE PO SCH (08:58)
[2019-12-08] MEDS: LevETIRAcetam 250 MG TABLET PO SCH ×2 (08:58→16:21)
[2019-12-08] MEDS: LORazepam 2 MG TABLET PO PRN ×2 (10:00→20:50)
[2019-12-08 16:12] VITALS: BP 112/68
[2019-12-09 06:05] VITALS: BP 121/70
[2019-12-09] MEDS: DIVALPROEX SODIUM 500 MG DR TABLET PO SCH (08:16)
[2019-12-09] MEDS: LORazepam 2 MG TABLET PO PRN (08:16)
[2019-12-09] MEDS: ARIPiprazole 15 MG TABLET PO SCH (08:16)
[2019-12-09] MEDS: LevETIRAcetam 250 MG TABLET PO SCH (08:17)
[2019-12-09] MEDS: SPIRONOLACTONE 50 MG TABLET PO SCH (08:17)
[2019-12-09 08:32] VITALS: BP 107/73
[2019-12-09] MEDS ORDERED: DIVA-78 PO ×2 (08:45)
[2019-12-09] MEDS ORDERED: ARIP15TA2 PO (08:45)
[2019-12-09] MEDS ORDERED: LEVE250T55 PO (08:45)
[2019-12-09] MEDS: MINOCYCLINE HCL 100 MG CAPSULE PO SCH (09:02)
== END 2019-12-09 10:35 | disposition home or self-care (01) | DRG 885 ==
LOC: EMS 00:33 → B2X 02:30
DX: F25.0 Schizoaffective disorder, bipolar type (principal); R45.851 Suicidal ideations; F10.10 Alcohol abuse, uncomplicated; Y90.9 Presence of alcohol in blood, level not specified; G40.909 Epilepsy, unspecified, not intractable, without status epilepticus; E03.9 Hypothyroidism, unspecified; F19.10 Other psychoactive substance abuse, uncomplicated; Z59.0 Homelessness; Z95.0 Presence of cardiac pacemaker; Z88.8 Allergy status to other drugs, medicaments and biological substances; Z79.899 Other long term (current) drug therapy; Z87.891 Personal history of nicotine dependence
CPT/HCPCS: 87081; G0480; Q0162

== ENCOUNTER 2020-02-11 13:25 | Inpatient (IN) | payer MEDICARE, MEDICAID ==
[~2020-02-11] VITALS: Ht 172.7 cm; Wt 7.6 kg
[~2020-02-11 13:25] MED LIST changes: -ARIP10TA8 PO; +ARIP15TA2 PO; +DIVA-112 PO; +LEVE250T55 PO
[2020-02-11] MEDS ORDERED: ZOLPIDEM TARTRATE 10 MG TABLET PO PRN (19:45)
[2020-02-11] MEDS ORDERED: QUEtiapine FUMARATE 100 MG TABLET PO PRN (19:45)
[2020-02-11 20:32] VITALS: BP 139/92
[2020-02-11] MEDS: LORazepam 2 MG TABLET PO PRN (20:40)
[2020-02-12 00:32] VITALS: BP 132/88
[2020-02-12 02:06] VITALS: BP 112/79
[2020-02-12] MEDS: LORazepam 2 MG TABLET PO PRN ×2 (02:08→20:31)
[2020-02-12] MEDS ORDERED: MAGNESIUM HYDROXIDE SUSPENSION 30 ML UDCUP PO PRN (08:00)
[2020-02-12] MEDS ORDERED: ACETAMINOPHEN 325 MG TABLET PO PRN (08:00)
[2020-02-12] MEDS ORDERED: CloNIDine HCL 0.1 MG TABLET PO PRN (08:00)
[2020-02-12] MEDS ORDERED: IBUPROFEN 400 MG TABLET PO PRN (08:00)
[2020-02-12] MEDS ORDERED: DOCUSATE SODIUM 100 MG CAPSULE PO PRN (08:00)
[2020-02-12] MEDS ORDERED: ALBUTEROL SULFATE HFA 90 MCG/PUFF 8 GM INHALER IH PRN (08:00)
[2020-02-12] MEDS ORDERED: ONDANSETRON HCL 4 MG TABLET PO PRN (08:00)
[2020-02-12] MEDS ORDERED: MAG HYDROX/AL HYDROX/SIMETH ES 30 ML SUSPENSION UDCUP PO PRN (08:00)
[2020-02-12] MEDS ORDERED: PETROLATUM,WHITE 28 GM JELLY TP PRN (08:00)
[2020-02-12] MEDS ORDERED: LOPERAMIDE HCL 2 MG CAPSULE PO PRN (08:00)
[2020-02-12] MEDS ORDERED: NICOTINE 14 MG/24 HOUR PATCH TD PRN (08:00)
[2020-02-12] MEDS ORDERED: GuaiFENesin/D-METHORPHAN [SUGAR-FREE] 200-20MG/10 ML SYRUP UDCUP PO PRN (08:00)
[2020-02-12 08:09] VITALS: BP 124/77
[2020-02-12 08:11] LABS: BASOPHILS % (AUTO) 0.7 % (0.0-2.0); EOSINOPHILS % (AUTO) 3.1 % (1.0-6.0); HEMATOCRIT 33.8 % (36-46); HEMOGLOBIN 11.3 g/dL (12.0-16.0); LYMPHOCYTES # (AUTO) 2.6 K/uL (1.0-4.8); LYMPHOCYTES % (AUTO) 49.5 % (22.0-44.0); MEAN CORPUSCULAR HEMOGLOBIN 29.3 pg (26.0-34.0); MEAN CORPUSCULAR HGB CONC 33.4 G/dL (31.0-37.0); MEAN CORPUSCULAR VOLUME 88 fL (80-100); MONOCYTES # (AUTO) 0.5 K/uL (0.1-1.0); MONOCYTES % (AUTO) 9.7 % (2.0-9.0); NEUTROPHILS # (AUTO) 1.9 K/uL (1.8-7.7); PLATELET COUNT (AUTO) 249 K/uL (150-450); RED BLOOD CELL COUNT(AUTO) 3.86 MIL/uL (4.00-5.20); RED CELL DISTRIBUTION WIDTH 13.9 % (11.5-14.5)
[2020-02-12] MEDS: LevETIRAcetam 250 MG TABLET PO SCH ×2 (08:38→16:45)
[2020-02-12] MEDS: SPIRONOLACTONE 50 MG TABLET PO SCH ×2 (08:38→16:45)
[2020-02-12 08:45] LABS: ALANINE AMINOTRANSFERASE 15 U/L (12-78); ALBUMIN 3.4 g/dL (3.4-5.0); ALKALINE PHOSPHATASE 69 U/L (46-116); ANION GAP 7 mmol/L (8-16); ASPARTATE AMINOTRANSFERASE 12 U/L (15-37); BILIRUBIN,TOTAL 0.2 mg/dL (0.1-1.0); CALCIUM, TOTAL 8.8 mg/dL (8.8-10.5); CARBON DIOXIDE 29 mmol/L (22-29); CHLORIDE 105 mmol/L (98-107); CHOL/HDL RATIO 2.5 (3.9-5.7); CHOLESTEROL 136 mg/dL (131-200); CREATININE 0.82 mg/dL (0.60-1.30); FREE T4 (FREE THYROXINE) 0.79 ng/dL (0.76-1.46); GLOMERULAR FILTR. RATE CALC > 60 mL/min (>60); GLUCOSE,RANDOM 85 mg/dL (70-110); HCG,QUANTITATIVE 3 mIU/mL (0-6); HDL CHOLESTEROL 54 mg/dL (40-60); LDL CHOL (CALC.) 74 mg/dL (0-130); POTASSIUM 4.5 mmol/L (3.5-5.1); SODIUM SERUM 141 mmol/L (136-145); THYROID STIMULATING HORMONE 1.25 uIU/mL (0.36-3.74); TOTAL PROTEIN, SERUM 7.2 g/dL (6.4-8.2); TRIGLYCERIDES 40 mg/dL (15-150); UREA NITROGEN, BLOOD 18 mg/dL (7-18)
[2020-02-12] MEDS: ARIPiprazole 15 MG TABLET PO SCH (12:46)
[2020-02-12] MEDS: DIVALPROEX SODIUM 500 MG DR TABLET PO SCH ×2 (12:46→20:31)
[2020-02-12 16:04] VITALS: BP 124/78
[2020-02-13 03:41] VITALS: BP 108/76
[2020-02-13 08:05] VITALS: BP 126/87
[2020-02-13] MEDS: SPIRONOLACTONE 50 MG TABLET PO SCH ×2 (08:40→16:39)
[2020-02-13] MEDS: DIVALPROEX SODIUM 500 MG DR TABLET PO SCH ×2 (08:40→20:30)
[2020-02-13] MEDS: ARIPiprazole 15 MG TABLET PO SCH (08:40)
[2020-02-13] MEDS: LevETIRAcetam 250 MG TABLET PO SCH ×2 (08:41→16:39)
[2020-02-13 09:59] VITALS: BP 123/89
[2020-02-13 16:08] VITALS: BP 127/82
[2020-02-14] MEDS: LORazepam 2 MG TABLET PO PRN ×2 (00:21→20:08)
[2020-02-14 00:32] VITALS: BP 115/78
[2020-02-14] MEDS: SPIRONOLACTONE 50 MG TABLET PO SCH ×2 (08:28→16:26)
[2020-02-14] MEDS: OMEGA-3/DHA/EPA/FISH OIL 1,000 MG CAPSULE PO SCH (08:28)
[2020-02-14] MEDS: LevETIRAcetam 250 MG TABLET PO SCH ×2 (08:29→16:26)
[2020-02-14] MEDS: ARIPiprazole 15 MG TABLET PO SCH (08:30)
[2020-02-14 08:32] VITALS: BP 121/81
[2020-02-14] MEDS: DIVALPROEX SODIUM 500 MG DR TABLET PO SCH ×2 (08:32→20:08)
[2020-02-14 16:17] VITALS: BP 118/72
[2020-02-15 00:11] VITALS: BP 120/72
[2020-02-15] MEDS: ARIPiprazole 15 MG TABLET PO SCH (08:16)
[2020-02-15] MEDS: OMEGA-3/DHA/EPA/FISH OIL 1,000 MG CAPSULE PO SCH (08:16)
[2020-02-15] MEDS: DIVALPROEX SODIUM 500 MG DR TABLET PO SCH ×2 (08:16→20:33)
[2020-02-15] MEDS: LevETIRAcetam 250 MG TABLET PO SCH ×2 (08:16→16:19)
[2020-02-15] MEDS: SPIRONOLACTONE 50 MG TABLET PO SCH ×2 (08:17→16:19)
[2020-02-15 08:55] VITALS: BP 110/62
[2020-02-15 16:07] VITALS: BP 104/74
[2020-02-15] MEDS: LORazepam 2 MG TABLET PO PRN (17:22)
[2020-02-16 00:24] VITALS: BP 106/70
[2020-02-16] MEDS: SPIRONOLACTONE 50 MG TABLET PO SCH ×2 (08:50→17:02)
[2020-02-16] MEDS: ARIPiprazole 15 MG TABLET PO SCH (08:50)
[2020-02-16] MEDS: OMEGA-3/DHA/EPA/FISH OIL 1,000 MG CAPSULE PO SCH (08:50)
[2020-02-16] MEDS: DIVALPROEX SODIUM 500 MG DR TABLET PO SCH ×2 (08:50→20:48)
[2020-02-16] MEDS: LevETIRAcetam 250 MG TABLET PO SCH ×2 (08:50→17:02)
[2020-02-16 09:31] VITALS: BP 118/77
[2020-02-16] MEDS: LORazepam 2 MG TABLET PO PRN ×2 (12:51→20:48)
[2020-02-16 16:16] VITALS: BP 100/69
[2020-02-17 00:08] VITALS: BP 102/70
[2020-02-17 08:20] VITALS: BP 112/71
[2020-02-17] MEDS: ARIPiprazole 15 MG TABLET PO SCH (08:36)
[2020-02-17] MEDS: DIVALPROEX SODIUM 500 MG DR TABLET PO SCH ×2 (08:36→20:31)
[2020-02-17] MEDS: LevETIRAcetam 250 MG TABLET PO SCH ×2 (08:36→16:41)
[2020-02-17] MEDS: SPIRONOLACTONE 50 MG TABLET PO SCH ×2 (08:36→16:41)
[2020-02-17] MEDS: OMEGA-3/DHA/EPA/FISH OIL 1,000 MG CAPSULE PO SCH (08:36)
[2020-02-17] MEDS: LORazepam 2 MG TABLET PO PRN (09:28)
[2020-02-17 16:06] VITALS: BP 113/64
[2020-02-18 05:00] VITALS: BP 110/68
[2020-02-18] MEDS: DIVALPROEX SODIUM 500 MG DR TABLET PO SCH (08:36)
[2020-02-18] MEDS: ARIPiprazole 15 MG TABLET PO SCH (08:36)
[2020-02-18] MEDS: SPIRONOLACTONE 50 MG TABLET PO SCH ×2 (08:36→16:33)
[2020-02-18] MEDS: LevETIRAcetam 250 MG TABLET PO SCH ×2 (08:36→16:33)
[2020-02-18] MEDS: OMEGA-3/DHA/EPA/FISH OIL 1,000 MG CAPSULE PO SCH (08:37)
[2020-02-18] MEDS: LORazepam 2 MG TABLET PO PRN (08:46)
[2020-02-18 08:49] VITALS: BP 107/69
[2020-02-18 16:19] VITALS: BP 113/78
== END 2020-02-18 17:59 | disposition home or self-care (01) | DRG 885 ==
LOC: B2X 19:43 → UNDOADMIN 19:43 → UNDODISIN 02-18 17:59
DX: F25.0 Schizoaffective disorder, bipolar type (principal); R45.851 Suicidal ideations; F41.9 Anxiety disorder, unspecified; G40.909 Epilepsy, unspecified, not intractable, without status epilepticus; D64.9 Anemia, unspecified; Z59.0 Homelessness; Z79.899 Other long term (current) drug therapy; Z88.8 Allergy status to other drugs, medicaments and biological substances
CPT/HCPCS: 84436; 84439; 84443

== ENCOUNTER 2020-02-24 08:44 | Inpatient (IN) | payer MEDICARE, MEDICAID ==
[~2020-02-24] VITALS: Ht 172.7 cm; Wt 72.6 kg
[~2020-02-24 08:44] MED LIST changes: -MINO100 PO
[2020-02-24] MEDS ORDERED: QUEtiapine FUMARATE 100 MG TABLET PO PRN (15:00)
[2020-02-24] MEDS ORDERED: ZOLPIDEM TARTRATE 10 MG TABLET PO PRN (15:00)
[2020-02-24] MEDS ORDERED: NICOTINE 14 MG/24 HOUR PATCH TD PRN (17:15)
[2020-02-24] MEDS ORDERED: ONDANSETRON HCL 4 MG TABLET PO PRN (17:15)
[2020-02-24] MEDS ORDERED: GuaiFENesin/D-METHORPHAN [SUGAR-FREE] 200-20MG/10 ML SYRUP UDCUP PO PRN (17:15)
[2020-02-24] MEDS ORDERED: PETROLATUM,WHITE 28 GM JELLY TP PRN (17:15)
[2020-02-24] MEDS ORDERED: MAGNESIUM HYDROXIDE SUSPENSION 30 ML UDCUP PO PRN (17:15)
[2020-02-24] MEDS ORDERED: CloNIDine HCL 0.1 MG TABLET PO PRN (17:15)
[2020-02-24] MEDS ORDERED: ALBUTEROL SULFATE HFA 90 MCG/PUFF 8 GM INHALER IH PRN (17:15)
[2020-02-24] MEDS ORDERED: MAG HYDROX/AL HYDROX/SIMETH ES 30 ML SUSPENSION UDCUP PO PRN (17:15)
[2020-02-24] MEDS ORDERED: LOPERAMIDE HCL 2 MG CAPSULE PO PRN (17:15)
[2020-02-24] MEDS ORDERED: DOCUSATE SODIUM 100 MG CAPSULE PO PRN (17:15)
[2020-02-24 19:34] VITALS: BP 99/67
[2020-02-24] MEDS: DIVALPROEX SODIUM 500 MG DR TABLET PO SCH (21:19)
[2020-02-25 00:03] VITALS: BP 99/61
[2020-02-25 08:03] VITALS: BP 99/54
[2020-02-25] MEDS: LevETIRAcetam 250 MG TABLET PO SCH ×2 (08:18→17:17)
[2020-02-25] MEDS: SPIRONOLACTONE 50 MG TABLET PO SCH ×2 (08:18→17:17)
[2020-02-25] MEDS: DIVALPROEX SODIUM 500 MG DR TABLET PO SCH ×2 (08:18→20:25)
[2020-02-25] MEDS: ARIPiprazole 15 MG TABLET PO SCH (08:18)
[2020-02-25 08:37] LABS: APPEARANCE,URINE CLEAR (CLEAR); BILIRUBIN,URINE NEGATIVE (NEGATIVE); GLUCOSE, URINE (UA) NEGATIVE (NEGATIVE); KETONES,URINE TRACE mg/dL (NEGATIVE); LEUKOCYTE ESTERASE ,URINE NEGATIVE (NEGATIVE); NITRATE,URINE NEGATIVE (NEGATIVE); OCCULT BLOOD,URINE NEGATIVE (NEGATIVE); PROTEIN,URINE NEGATIVE (NEGATIVE)
[2020-02-25 08:46] LABS: AMPHET/METH SCREEN,URINE NEGATIVE (NEGATIVE); BARBITURATE SCREEN, URINE NEGATIVE (NEGATIVE); BENZODIAZEPINES SCREEN,URINE NEGATIVE (NEGATIVE); CANNABINOID SCREEN,URINE NEGATIVE (NEGATIVE); COCAINE SCREEN,URINE NEGATIVE (NEGATIVE); METHADONE SCREEN, URINE NEGATIVE (NEGATIVE); OPIATE SCREEN,URINE NEGATIVE (NEGATIVE)
[2020-02-25 08:48] LABS: PHENCYCLIDINE SCREEN,URINE NEGATIVE (NEGATIVE)
[2020-02-25 12:16] VITALS: BP 114/86
[2020-02-25] MEDS: IBUPROFEN 400 MG TABLET PO PRN (12:16)
[2020-02-25] MEDS ORDERED: ARIPiprazole 15 MG TABLET PO SCH (13:15)
[2020-02-25] MEDS ORDERED: DIVALPROEX SODIUM 500 MG DR TABLET PO SCH ×2 (13:15→21:00)
[2020-02-25] MEDS ORDERED: DICLOFENAC SODIUM 1% 100 GM GEL [2GM] TP PRN (15:30)
[2020-02-25 17:16] VITALS: BP 121/69
[2020-02-26] VITALS: BP 110/69
[2020-02-26] MEDS: SPIRONOLACTONE 50 MG TABLET PO SCH ×2 (08:02→16:29)
[2020-02-26] MEDS: LevETIRAcetam 250 MG TABLET PO SCH ×2 (08:02→16:29)
[2020-02-26] MEDS: ARIPiprazole 15 MG TABLET PO SCH (08:03)
[2020-02-26] MEDS: DIVALPROEX SODIUM 500 MG DR TABLET PO SCH ×2 (08:05→20:26)
[2020-02-26 08:21] VITALS: BP 108/61
[2020-02-26 08:44] LABS: BASOPHILS % (AUTO) 0.7 % (0.0-2.0); EOSINOPHILS % (AUTO) 4.4 % (1.0-6.0); HEMATOCRIT 38.6 % (36-46); HEMOGLOBIN 13.3 g/dL (12.0-16.0); LYMPHOCYTES # (AUTO) 1.8 K/uL (1.0-4.8); LYMPHOCYTES % (AUTO) 45.3 % (22.0-44.0); MEAN CORPUSCULAR HEMOGLOBIN 31.8 pg (26.0-34.0); MEAN CORPUSCULAR HGB CONC 34.5 G/dL (31.0-37.0); MEAN CORPUSCULAR VOLUME 92 fL (80-100); MONOCYTES # (AUTO) 0.3 K/uL (0.1-1.0); MONOCYTES % (AUTO) 6.3 % (2.0-9.0); NEUTROPHILS # (AUTO) 1.7 K/uL (1.8-7.7); NEUTROPHILS % (AUTO) 43.3 % (40.0-70.0); PLATELET COUNT (AUTO) 190 K/uL (150-450); RED BLOOD CELL COUNT(AUTO) 4.18 MIL/uL (4.00-5.20); RED CELL DISTRIBUTION WIDTH 12.9 % (11.5-14.5)
[2020-02-26 09:10] LABS: ALANINE AMINOTRANSFERASE 15 U/L (12-78); ALBUMIN 3.3 g/dL (3.4-5.0); ALKALINE PHOSPHATASE 40 U/L (46-116); ANION GAP 7 mmol/L (8-16); ASPARTATE AMINOTRANSFERASE 12 U/L (15-37); BILIRUBIN,TOTAL 0.5 mg/dL (0.1-1.0); CALCIUM, TOTAL 8.8 mg/dL (8.8-10.5); CARBON DIOXIDE 27 mmol/L (22-29); CHLORIDE 107 mmol/L (98-107); CHOL/HDL RATIO 2.3 (3.9-5.7); CHOLESTEROL 118 mg/dL (131-200); CREATININE 0.78 mg/dL (0.60-1.30); GLOMERULAR FILTR. RATE CALC > 60 mL/min (>60); GLUCOSE,RANDOM 90 mg/dL (70-110); HDL CHOLESTEROL 52 mg/dL (40-60); LDL CHOL (CALC.) 56 mg/dL (0-130); POTASSIUM 4.4 mmol/L (3.5-5.1); SODIUM SERUM 141 mmol/L (136-145); TOTAL PROTEIN, SERUM 6.6 g/dL (6.4-8.2); TRIGLYCERIDES 52 mg/dL (15-150); UREA NITROGEN, BLOOD 13 mg/dL (7-18); VALPROIC ACID 80 mcg/mL (50-100)
[2020-02-26 09:22] LABS: HEMOGLOBIN A1C 4.8 % (3.8-5.6)
[2020-02-26 16:12] VITALS: BP 110/63
[2020-02-26 17:20] VITALS: BP 117/64
[2020-02-26] MEDS: LORazepam 2 MG TABLET PO PRN (17:21)
[2020-02-26] MEDS: IBUPROFEN 400 MG TABLET PO PRN (17:22)
[2020-02-27 06:09] VITALS: BP 114/60
[2020-02-27] MEDS: SPIRONOLACTONE 50 MG TABLET PO SCH ×2 (08:12→16:51)
[2020-02-27] MEDS: ARIPiprazole 15 MG TABLET PO SCH (08:12)
[2020-02-27] MEDS: LevETIRAcetam 250 MG TABLET PO SCH ×2 (08:12→16:51)
[2020-02-27] MEDS: DIVALPROEX SODIUM 500 MG DR TABLET PO SCH ×2 (08:12→20:30)
[2020-02-27 08:32] VITALS: BP 101/72
[2020-02-27] MEDS: IBUPROFEN 400 MG TABLET PO PRN ×2 (08:59→17:21)
[2020-02-27 16:03] VITALS: BP 118/63
[2020-02-27] MEDS: LORazepam 2 MG TABLET PO PRN (17:30)
[2020-02-28 05:27] VITALS: BP 109/63
[2020-02-28] MEDS: DIVALPROEX SODIUM 500 MG DR TABLET PO SCH ×2 (08:49→20:41)
[2020-02-28] MEDS: ARIPiprazole 15 MG TABLET PO SCH (08:50)
[2020-02-28] MEDS: SPIRONOLACTONE 50 MG TABLET PO SCH ×2 (08:50→16:29)
[2020-02-28] MEDS: LevETIRAcetam 250 MG TABLET PO SCH ×2 (08:51→16:29)
[2020-02-28 09:06] VITALS: BP 110/65
[2020-02-28] MEDS: LORazepam 2 MG TABLET PO PRN (12:15)
[2020-02-28 16:27] VITALS: BP 113/70
[2020-02-28 16:28] VITALS: BP 113/70
[2020-02-29 06:05] VITALS: BP 100/61
[2020-02-29] MEDS: SPIRONOLACTONE 50 MG TABLET PO SCH ×2 (08:05→17:27)
[2020-02-29] MEDS: DIVALPROEX SODIUM 500 MG DR TABLET PO SCH ×2 (08:05→20:30)
[2020-02-29] MEDS: LevETIRAcetam 250 MG TABLET PO SCH ×2 (08:05→16:31)
[2020-02-29] MEDS: ARIPiprazole 15 MG TABLET PO SCH (08:05)
[2020-02-29 08:09] VITALS: BP 133/64
[2020-02-29] MEDS: LORazepam 2 MG TABLET PO PRN (09:54)
[2020-02-29 16:30] VITALS: BP 100/66
[2020-02-29 17:27] VITALS: BP 111/72
[2020-03-01 06:16] VITALS: BP 108/67
[2020-03-01 08:53] VITALS: BP 110/61
[2020-03-01] MEDS: SPIRONOLACTONE 50 MG TABLET PO SCH ×2 (09:16→16:44)
[2020-03-01] MEDS: LevETIRAcetam 250 MG TABLET PO SCH ×2 (09:16→16:44)
[2020-03-01] MEDS: DIVALPROEX SODIUM 500 MG DR TABLET PO SCH ×2 (09:16→20:28)
[2020-03-01] MEDS: ARIPiprazole 15 MG TABLET PO SCH (09:16)
[2020-03-01] MEDS: LORazepam 2 MG TABLET PO PRN (09:55)
[2020-03-01 16:11] VITALS: BP 110/72
[2020-03-02 00:31] VITALS: BP 115/75
[2020-03-02] MEDS: ARIPiprazole 15 MG TABLET PO SCH (08:12)
[2020-03-02] MEDS: LevETIRAcetam 250 MG TABLET PO SCH ×2 (08:12→16:32)
[2020-03-02] MEDS: SPIRONOLACTONE 50 MG TABLET PO SCH ×2 (08:12→17:10)
[2020-03-02] MEDS: DIVALPROEX SODIUM 500 MG DR TABLET PO SCH ×2 (08:12→20:35)
[2020-03-02 08:33] VITALS: BP 103/77
[2020-03-02] MEDS: LORazepam 2 MG TABLET PO PRN (08:51)
[2020-03-02 16:58] VITALS: BP 102/75
[2020-03-02 17:11] VITALS: BP 112/69
[2020-03-03 00:28] VITALS: BP 102/64
[2020-03-03] MEDS: LORazepam 2 MG TABLET PO PRN ×4 (00:33→20:46)
[2020-03-03 08:23] VITALS: BP 115/71
[2020-03-03] MEDS: DIVALPROEX SODIUM 500 MG DR TABLET PO SCH ×2 (08:52→20:42)
[2020-03-03] MEDS: SPIRONOLACTONE 50 MG TABLET PO SCH ×2 (08:52→17:19)
[2020-03-03] MEDS: ARIPiprazole 15 MG TABLET PO SCH (08:52)
[2020-03-03] MEDS: LevETIRAcetam 250 MG TABLET PO SCH ×2 (08:52→16:52)
[2020-03-03 16:29] VITALS: BP 97/76
[2020-03-03 17:00] VITALS: BP 107/70
[2020-03-04 00:45] VITALS: BP 99/68
[2020-03-04 08:18] VITALS: BP 102/78
[2020-03-04] MEDS: LevETIRAcetam 250 MG TABLET PO SCH ×2 (09:05→17:23)
[2020-03-04] MEDS: DIVALPROEX SODIUM 500 MG DR TABLET PO SCH ×2 (09:06→20:38)
[2020-03-04] MEDS: SPIRONOLACTONE 50 MG TABLET PO SCH ×2 (09:06→17:22)
[2020-03-04] MEDS: ARIPiprazole 15 MG TABLET PO SCH (09:06)
[2020-03-04] MEDS: LORazepam 2 MG TABLET PO PRN ×2 (09:08→15:23)
[2020-03-04 16:07] VITALS: BP 111/74
[2020-03-05 00:29] VITALS: BP 122/70
[2020-03-05] MEDS: ARIPiprazole 15 MG TABLET PO SCH (08:32)
[2020-03-05] MEDS: SPIRONOLACTONE 50 MG TABLET PO SCH ×2 (08:33→16:30)
[2020-03-05] MEDS: DIVALPROEX SODIUM 500 MG DR TABLET PO SCH ×2 (08:33→20:33)
[2020-03-05] MEDS: LevETIRAcetam 250 MG TABLET PO SCH ×2 (08:33→16:30)
[2020-03-05 08:49] VITALS: BP 110/78
[2020-03-05] MEDS: LORazepam 2 MG TABLET PO PRN (11:44)
[2020-03-05 16:10] VITALS: BP 122/94
[2020-03-06 02:11] VITALS: BP 108/62
[2020-03-06] MEDS: ARIPiprazole 15 MG TABLET PO SCH (08:26)
[2020-03-06] MEDS: SPIRONOLACTONE 50 MG TABLET PO SCH ×2 (08:27→17:00)
[2020-03-06] MEDS: DIVALPROEX SODIUM 500 MG DR TABLET PO SCH ×2 (08:27→20:58)
[2020-03-06] MEDS: LORazepam 2 MG TABLET PO PRN ×3 (08:27→20:58)
[2020-03-06] MEDS: LevETIRAcetam 250 MG TABLET PO SCH ×2 (08:28→17:00)
[2020-03-06 08:32] VITALS: BP 115/71
[2020-03-06 16:30] VITALS: BP 112/63
[2020-03-07 07:00] VITALS: BP 118/68
[2020-03-07] MEDS: SPIRONOLACTONE 50 MG TABLET PO SCH ×2 (08:32→16:23)
[2020-03-07] MEDS: LevETIRAcetam 250 MG TABLET PO SCH ×2 (08:32→16:23)
[2020-03-07] MEDS: ARIPiprazole 15 MG TABLET PO SCH (08:43)
[2020-03-07] MEDS: DIVALPROEX SODIUM 500 MG DR TABLET PO SCH ×2 (08:43→20:42)
[2020-03-07] MEDS: LORazepam 2 MG TABLET PO PRN ×2 (08:43→21:05)
[2020-03-07 09:14] VITALS: BP 107/69
[2020-03-07 17:21] VITALS: BP 122/79
[2020-03-08 06:36] VITALS: BP 111/63
[2020-03-08 08:17] VITALS: BP 137/77
[2020-03-08] MEDS: LevETIRAcetam 250 MG TABLET PO SCH ×2 (08:37→16:10)
[2020-03-08] MEDS: SPIRONOLACTONE 50 MG TABLET PO SCH ×2 (08:37→16:09)
[2020-03-08] MEDS: DIVALPROEX SODIUM 500 MG DR TABLET PO SCH ×2 (08:37→20:19)
[2020-03-08] MEDS: ARIPiprazole 15 MG TABLET PO SCH (08:37)
[2020-03-08 16:07] VITALS: BP 113/68
[2020-03-08] MEDS: LORazepam 2 MG TABLET PO PRN (19:36)
[2020-03-09 01:02] VITALS: BP 109/70
[2020-03-09 08:23] VITALS: BP 154/95
[2020-03-09] MEDS: DIVALPROEX SODIUM 500 MG DR TABLET PO SCH ×2 (09:01→20:29)
[2020-03-09] MEDS: ARIPiprazole 15 MG TABLET PO SCH (09:05)
[2020-03-09] MEDS: LevETIRAcetam 250 MG TABLET PO SCH ×2 (09:06→16:34)
[2020-03-09] MEDS: SPIRONOLACTONE 50 MG TABLET PO SCH ×2 (09:07→16:34)
[2020-03-09] MEDS: LORazepam 2 MG TABLET PO PRN (15:51)
[2020-03-09 16:09] VITALS: BP 111/77
[2020-03-10 01:50] VITALS: BP 106/70
[2020-03-10 08:06] VITALS: BP 114/78
[2020-03-10] MEDS: LORazepam 2 MG TABLET PO PRN ×2 (08:19→21:03)
[2020-03-10] MEDS: DIVALPROEX SODIUM 500 MG DR TABLET PO SCH ×2 (08:20→20:22)
[2020-03-10] MEDS: SPIRONOLACTONE 50 MG TABLET PO SCH ×2 (08:20→17:04)
[2020-03-10] MEDS: LevETIRAcetam 250 MG TABLET PO SCH ×2 (08:20→17:05)
[2020-03-10] MEDS: ARIPiprazole 15 MG TABLET PO SCH (08:20)
[2020-03-10 12:35] VITALS: BP 122/67
[2020-03-10] MEDS: ACETAMINOPHEN 325 MG TABLET PO PRN (12:35)
[2020-03-10 16:00] VITALS: BP 106/80
[2020-03-11 01:03] VITALS: BP 102/76
[2020-03-11 08:10] VITALS: BP 120/77
[2020-03-11] MEDS: ARIPiprazole 15 MG TABLET PO SCH (08:35)
[2020-03-11] MEDS: SPIRONOLACTONE 50 MG TABLET PO SCH ×2 (08:35→16:24)
[2020-03-11] MEDS: LevETIRAcetam 250 MG TABLET PO SCH ×2 (08:35→16:24)
[2020-03-11] MEDS: DIVALPROEX SODIUM 500 MG DR TABLET PO SCH ×2 (08:36→20:05)
[2020-03-11 16:09] VITALS: BP 130/66
[2020-03-11] MEDS: LORazepam 2 MG TABLET PO PRN (20:07)
[2020-03-12 01:23] VITALS: BP 112/77
[2020-03-12 08:20] VITALS: BP 106/76
[2020-03-12] MEDS: SPIRONOLACTONE 50 MG TABLET PO SCH ×2 (08:35→16:15)
[2020-03-12] MEDS: DIVALPROEX SODIUM 500 MG DR TABLET PO SCH ×2 (08:35→20:18)
[2020-03-12] MEDS: LevETIRAcetam 250 MG TABLET PO SCH ×2 (08:35→16:15)
[2020-03-12] MEDS: ARIPiprazole 15 MG TABLET PO SCH (08:35)
[2020-03-12] MEDS: LORazepam 2 MG TABLET PO PRN ×3 (08:36→20:59)
[2020-03-12] MEDS ORDERED: TUBERCULIN, PURIFIED PROTEIN DERIVATIVE 5 TU/0.1 ML SYRINGE ID ONE (11:15)
[2020-03-12 16:55] VITALS: BP 124/75
[2020-03-13 05:06] VITALS: BP 104/74
[2020-03-13 08:19] VITALS: BP 115/76
[2020-03-13] MEDS: DIVALPROEX SODIUM 500 MG DR TABLET PO SCH ×2 (08:47→20:26)
[2020-03-13] MEDS: ARIPiprazole 15 MG TABLET PO SCH (08:47)
[2020-03-13] MEDS: LevETIRAcetam 250 MG TABLET PO SCH ×2 (08:47→16:36)
[2020-03-13] MEDS: SPIRONOLACTONE 50 MG TABLET PO SCH ×2 (08:47→16:36)
[2020-03-13 17:20] VITALS: BP 110/81
[2020-03-14 00:19] VITALS: BP 112/81
[2020-03-14] MEDS: LORazepam 2 MG TABLET PO PRN ×2 (00:19→09:23)
[2020-03-14 08:14] VITALS: BP 110/67
[2020-03-14] MEDS: DIVALPROEX SODIUM 500 MG DR TABLET PO SCH ×2 (09:17→20:37)
[2020-03-14] MEDS: ARIPiprazole 15 MG TABLET PO SCH (09:17)
[2020-03-14] MEDS: SPIRONOLACTONE 50 MG TABLET PO SCH ×2 (09:18→16:34)
[2020-03-14] MEDS: LevETIRAcetam 250 MG TABLET PO SCH ×2 (09:18→16:34)
[2020-03-14 16:30] VITALS: BP 127/66
[2020-03-15 01:50] VITALS: BP 104/71
[2020-03-15 08:38] VITALS: BP 131/78
[2020-03-15] MEDS: ARIPiprazole 15 MG TABLET PO SCH (08:42)
[2020-03-15] MEDS: DIVALPROEX SODIUM 500 MG DR TABLET PO SCH ×2 (08:42→20:32)
[2020-03-15] MEDS: LevETIRAcetam 250 MG TABLET PO SCH ×2 (08:42→16:29)
[2020-03-15] MEDS: SPIRONOLACTONE 50 MG TABLET PO SCH ×2 (08:43→16:29)
[2020-03-15] MEDS: LORazepam 2 MG TABLET PO PRN (09:42)
[2020-03-15 16:11] VITALS: BP 126/68
[2020-03-16 00:45] VITALS: BP 121/89
[2020-03-16] MEDS: DIVALPROEX SODIUM 500 MG DR TABLET PO SCH ×2 (08:27→20:28)
[2020-03-16] MEDS: ARIPiprazole 15 MG TABLET PO SCH (08:27)
[2020-03-16] MEDS: SPIRONOLACTONE 50 MG TABLET PO SCH ×2 (08:27→16:32)
[2020-03-16] MEDS: ACETAMINOPHEN 325 MG TABLET PO PRN (08:27)
[2020-03-16] MEDS: LevETIRAcetam 250 MG TABLET PO SCH ×2 (08:27→16:32)
[2020-03-16 08:40] VITALS: BP 120/90
[2020-03-16] MEDS: LORazepam 2 MG TABLET PO PRN ×2 (11:48→21:06)
[2020-03-16] MEDS ORDERED: TUBERCULIN, PURIFIED PROTEIN DERIVATIVE 5 TU/0.1 ML SYRINGE ID ONE (15:30)
[2020-03-16 16:19] VITALS: BP 114/78
[2020-03-17 00:24] VITALS: BP 110/72
[2020-03-17 08:02] VITALS: BP 129/81
[2020-03-17] MEDS: ARIPiprazole 15 MG TABLET PO SCH (08:29)
[2020-03-17] MEDS: LevETIRAcetam 250 MG TABLET PO SCH ×2 (08:30→16:52)
[2020-03-17] MEDS: DIVALPROEX SODIUM 500 MG DR TABLET PO SCH ×2 (08:30→20:18)
[2020-03-17] MEDS: SPIRONOLACTONE 50 MG TABLET PO SCH ×2 (08:30→16:52)
[2020-03-17] MEDS: LORazepam 2 MG TABLET PO PRN ×2 (11:25→20:19)
[2020-03-17 16:13] VITALS: BP 113/69
[2020-03-18 01:36] VITALS: BP 123/81
[2020-03-18 08:04] VITALS: BP 113/75
[2020-03-18] MEDS: LevETIRAcetam 250 MG TABLET PO SCH ×2 (08:34→17:09)
[2020-03-18] MEDS: SPIRONOLACTONE 50 MG TABLET PO SCH ×2 (08:34→17:09)
[2020-03-18] MEDS: DIVALPROEX SODIUM 500 MG DR TABLET PO SCH ×2 (08:35→20:39)
[2020-03-18] MEDS: ARIPiprazole 15 MG TABLET PO SCH (08:35)
[2020-03-18] MEDS: LORazepam 2 MG TABLET PO PRN ×2 (09:16→22:53)
[2020-03-18 16:13] VITALS: BP 107/64
[2020-03-18 17:07] VITALS: BP 114/85
[2020-03-18 22:54] VITALS: BP 119/78
[2020-03-19 05:46] VITALS: BP 122/74
[2020-03-19] MEDS: DIVALPROEX SODIUM 500 MG DR TABLET PO SCH ×2 (08:16→20:30)
[2020-03-19] MEDS: SPIRONOLACTONE 50 MG TABLET PO SCH ×2 (08:16→16:30)
[2020-03-19] MEDS: ARIPiprazole 15 MG TABLET PO SCH (08:16)
[2020-03-19] MEDS: LevETIRAcetam 250 MG TABLET PO SCH ×2 (08:16→16:30)
[2020-03-19 08:24] VITALS: BP 109/81
[2020-03-19 16:00] VITALS: BP 121/89
[2020-03-20 00:38] VITALS: BP 119/77
[2020-03-20] MEDS: LORazepam 2 MG TABLET PO PRN ×2 (00:40→09:01)
[2020-03-20 08:12] VITALS: BP 116/86
[2020-03-20] MEDS: SPIRONOLACTONE 50 MG TABLET PO SCH ×2 (09:01→17:01)
[2020-03-20] MEDS: DIVALPROEX SODIUM 500 MG DR TABLET PO SCH ×2 (09:01→20:47)
[2020-03-20] MEDS: LevETIRAcetam 250 MG TABLET PO SCH ×2 (09:01→17:01)
[2020-03-20] MEDS: ARIPiprazole 15 MG TABLET PO SCH (09:01)
[2020-03-20 16:24] VITALS: BP 110/64
[2020-03-21 03:27] VITALS: BP 121/91
[2020-03-21 08:07] VITALS: BP 108/77
[2020-03-21] MEDS: DIVALPROEX SODIUM 500 MG DR TABLET PO SCH ×2 (08:26→20:21)
[2020-03-21] MEDS: SPIRONOLACTONE 50 MG TABLET PO SCH ×2 (08:26→16:07)
[2020-03-21] MEDS: LevETIRAcetam 250 MG TABLET PO SCH ×2 (08:26→16:07)
[2020-03-21] MEDS: ARIPiprazole 15 MG TABLET PO SCH (08:26)
[2020-03-21 16:04] VITALS: BP 107/78
[2020-03-22 00:26] VITALS: BP 111/79
[2020-03-22] MEDS: LevETIRAcetam 250 MG TABLET PO SCH ×2 (08:10→19:01)
[2020-03-22] MEDS: DIVALPROEX SODIUM 500 MG DR TABLET PO SCH ×2 (08:10→20:55)
[2020-03-22] MEDS: ARIPiprazole 15 MG TABLET PO SCH (08:10)
[2020-03-22] MEDS: SPIRONOLACTONE 50 MG TABLET PO SCH ×2 (08:11→17:00)
[2020-03-22 09:58] VITALS: BP 110/75
[2020-03-22 16:16] VITALS: BP 129/85
[2020-03-23 00:07] VITALS: BP 132/85
[2020-03-23] MEDS: ARIPiprazole 15 MG TABLET PO SCH (08:32)
[2020-03-23] MEDS: SPIRONOLACTONE 50 MG TABLET PO SCH ×2 (08:32→17:00)
[2020-03-23] MEDS: LevETIRAcetam 250 MG TABLET PO SCH ×2 (08:32→17:00)
[2020-03-23] MEDS: DIVALPROEX SODIUM 500 MG DR TABLET PO SCH ×2 (08:32→20:36)
[2020-03-23 08:33] VITALS: BP 128/69
[2020-03-23 18:04] VITALS: BP 116/78
[2020-03-24 00:27] VITALS: BP 118/80
[2020-03-24 08:26] VITALS: BP 132/93
[2020-03-24] MEDS: ARIPiprazole 15 MG TABLET PO SCH (08:30)
[2020-03-24] MEDS: LevETIRAcetam 250 MG TABLET PO SCH ×2 (08:30→16:43)
[2020-03-24] MEDS: SPIRONOLACTONE 50 MG TABLET PO SCH ×2 (08:30→16:43)
[2020-03-24] MEDS: DIVALPROEX SODIUM 500 MG DR TABLET PO SCH ×2 (08:30→20:41)
[2020-03-24] MEDS: LORazepam 2 MG TABLET PO PRN (11:41)
[2020-03-24 16:17] VITALS: BP 112/64
[2020-03-25 04:26] VITALS: BP 118/71
[2020-03-25 08:27] VITALS: BP 113/78
[2020-03-25] MEDS: DIVALPROEX SODIUM 500 MG DR TABLET PO SCH ×2 (08:28→20:41)
[2020-03-25] MEDS: LevETIRAcetam 250 MG TABLET PO SCH ×2 (08:28→16:23)
[2020-03-25] MEDS: SPIRONOLACTONE 50 MG TABLET PO SCH ×2 (08:28→16:23)
[2020-03-25] MEDS: ARIPiprazole 15 MG TABLET PO SCH (08:29)
[2020-03-25 16:25] VITALS: BP 104/75
[2020-03-26] MEDS: ARIPiprazole 15 MG TABLET PO SCH (08:36)
[2020-03-26] MEDS: LevETIRAcetam 250 MG TABLET PO SCH ×2 (08:36→16:11)
[2020-03-26] MEDS: SPIRONOLACTONE 50 MG TABLET PO SCH ×2 (08:36→16:11)
[2020-03-26] MEDS: DIVALPROEX SODIUM 500 MG DR TABLET PO SCH ×2 (08:36→20:23)
[2020-03-26 08:37] VITALS: BP 116/81
[2020-03-26 16:08] VITALS: BP 113/74
[2020-03-27 00:07] VITALS: BP 102/76
[2020-03-27 08:25] VITALS: BP 133/77
[2020-03-27] MEDS: DIVALPROEX SODIUM 500 MG DR TABLET PO SCH ×2 (08:59→20:29)
[2020-03-27] MEDS: ARIPiprazole 15 MG TABLET PO SCH (08:59)
[2020-03-27] MEDS: SPIRONOLACTONE 50 MG TABLET PO SCH ×2 (08:59→16:31)
[2020-03-27] MEDS: LevETIRAcetam 250 MG TABLET PO SCH ×2 (08:59→16:31)
[2020-03-27 16:09] VITALS: BP 113/68
[2020-03-28 01:23] VITALS: BP 114/72
[2020-03-28 08:17] VITALS: BP 130/81
[2020-03-28] MEDS: ARIPiprazole 15 MG TABLET PO SCH (08:49)
[2020-03-28] MEDS: LevETIRAcetam 250 MG TABLET PO SCH ×2 (08:49→16:37)
[2020-03-28] MEDS: SPIRONOLACTONE 50 MG TABLET PO SCH ×2 (08:49→16:37)
[2020-03-28] MEDS: DIVALPROEX SODIUM 500 MG DR TABLET PO SCH ×2 (08:50→20:33)
[2020-03-28 16:35] VITALS: BP 125/63
[2020-03-29 00:07] VITALS: BP 109/61
[2020-03-29 08:35] VITALS: BP 108/68
[2020-03-29] MEDS: DIVALPROEX SODIUM 500 MG DR TABLET PO SCH ×2 (08:39→20:33)
[2020-03-29] MEDS: ARIPiprazole 15 MG TABLET PO SCH (08:39)
[2020-03-29] MEDS: LevETIRAcetam 250 MG TABLET PO SCH ×2 (08:39→16:55)
[2020-03-29] MEDS: SPIRONOLACTONE 50 MG TABLET PO SCH ×2 (08:39→16:55)
[2020-03-29 16:10] VITALS: BP 113/62
[2020-03-30 00:12] VITALS: BP 113/69
[2020-03-30] MEDS: ARIPiprazole 15 MG TABLET PO SCH (08:16)
[2020-03-30] MEDS: SPIRONOLACTONE 50 MG TABLET PO SCH ×2 (08:16→17:30)
[2020-03-30] MEDS: DIVALPROEX SODIUM 500 MG DR TABLET PO SCH ×2 (08:16→20:39)
[2020-03-30] MEDS: LevETIRAcetam 250 MG TABLET PO SCH ×2 (08:16→16:29)
[2020-03-30 08:23] VITALS: BP 123/85
[2020-03-30 16:34] VITALS: BP 119/74
[2020-03-30] MEDS: LORazepam 2 MG TABLET PO PRN (20:39)
[2020-03-31 04:12] VITALS: BP 118/79
[2020-03-31] MEDS: ARIPiprazole 15 MG TABLET PO SCH (08:03)
[2020-03-31] MEDS: LevETIRAcetam 250 MG TABLET PO SCH ×2 (08:03→17:00)
[2020-03-31] MEDS: DIVALPROEX SODIUM 500 MG DR TABLET PO SCH ×2 (08:04→21:13)
[2020-03-31] MEDS: SPIRONOLACTONE 50 MG TABLET PO SCH ×2 (08:04→17:00)
[2020-03-31 08:16] VITALS: BP 120/86
[2020-03-31 16:22] VITALS: BP 105/68
[2020-04-01 00:50] VITALS: BP 102/80
[2020-04-01] MEDS: SPIRONOLACTONE 50 MG TABLET PO SCH ×2 (08:29→16:32)
[2020-04-01] MEDS: LevETIRAcetam 250 MG TABLET PO SCH ×2 (08:29→16:32)
[2020-04-01] MEDS: DIVALPROEX SODIUM 500 MG DR TABLET PO SCH ×2 (08:29→20:33)
[2020-04-01 08:32] VITALS: BP 108/71
[2020-04-01] MEDS: ARIPiprazole 15 MG TABLET PO SCH (08:32)
[2020-04-01 16:04] VITALS: BP 103/58
[2020-04-01 16:32] VITALS: BP 110/71
[2020-04-02 01:35] VITALS: BP 106/72
[2020-04-02] MEDS: DIVALPROEX SODIUM 500 MG DR TABLET PO SCH ×2 (08:11→20:36)
[2020-04-02] MEDS: SPIRONOLACTONE 50 MG TABLET PO SCH ×2 (08:11→17:09)
[2020-04-02] MEDS: LevETIRAcetam 250 MG TABLET PO SCH ×2 (08:11→16:29)
[2020-04-02] MEDS: ARIPiprazole 15 MG TABLET PO SCH (08:12)
[2020-04-02 09:27] VITALS: BP 107/67
[2020-04-02 16:00] VITALS: BP 101/65
[2020-04-02 17:08] VITALS: BP 111/76
[2020-04-03 00:12] VITALS: BP 109/71
[2020-04-03] MEDS: ARIPiprazole 15 MG TABLET PO SCH (08:03)
[2020-04-03] MEDS: SPIRONOLACTONE 50 MG TABLET PO SCH ×2 (08:04→16:03)
[2020-04-03] MEDS: DIVALPROEX SODIUM 500 MG DR TABLET PO SCH ×2 (08:04→20:15)
[2020-04-03] MEDS: LevETIRAcetam 250 MG TABLET PO SCH ×2 (08:04→16:03)
[2020-04-03 08:07] VITALS: BP 100/86
[2020-04-03 16:17] VITALS: BP 112/65
[2020-04-04 06:33] VITALS: BP 100/64
[2020-04-04 08:38] VITALS: BP 120/75
[2020-04-04] MEDS: LevETIRAcetam 250 MG TABLET PO SCH ×2 (08:41→16:31)
[2020-04-04] MEDS: DIVALPROEX SODIUM 500 MG DR TABLET PO SCH ×2 (08:41→20:32)
[2020-04-04] MEDS: SPIRONOLACTONE 50 MG TABLET PO SCH ×2 (08:41→17:14)
[2020-04-04] MEDS: ARIPiprazole 15 MG TABLET PO SCH (08:41)
[2020-04-04 17:14] VITALS: BP 110/68
[2020-04-05 00:30] VITALS: BP 107/65
[2020-04-05] MEDS: LevETIRAcetam 250 MG TABLET PO SCH ×2 (08:04→16:07)
[2020-04-05] MEDS: DIVALPROEX SODIUM 500 MG DR TABLET PO SCH ×2 (08:04→20:19)
[2020-04-05] MEDS: SPIRONOLACTONE 50 MG TABLET PO SCH ×2 (08:04→16:07)
[2020-04-05] MEDS: ARIPiprazole 15 MG TABLET PO SCH (08:04)
[2020-04-05 08:16] VITALS: BP 100/73
[2020-04-05 16:08] VITALS: BP 106/74
[2020-04-06 06:38] VITALS: BP 110/62
[2020-04-06] MEDS: SPIRONOLACTONE 50 MG TABLET PO SCH ×2 (08:10→16:37)
[2020-04-06] MEDS: ARIPiprazole 15 MG TABLET PO SCH (08:10)
[2020-04-06] MEDS: DIVALPROEX SODIUM 500 MG DR TABLET PO SCH ×2 (08:10→20:37)
[2020-04-06 08:11] VITALS: BP 107/72
[2020-04-06] MEDS: LevETIRAcetam 250 MG TABLET PO SCH ×2 (08:11→16:37)
[2020-04-06 10:39] VITALS: BP 108/75
[2020-04-06] MEDS: ACETAMINOPHEN 325 MG TABLET PO PRN (10:39)
[2020-04-06 16:04] VITALS: BP 112/67
[2020-04-07 00:19] VITALS: BP 100/66
[2020-04-07 08:07] VITALS: BP 106/64
[2020-04-07] MEDS: ARIPiprazole 15 MG TABLET PO SCH (08:07)
[2020-04-07] MEDS: LevETIRAcetam 250 MG TABLET PO SCH ×2 (08:07→16:31)
[2020-04-07] MEDS: DIVALPROEX SODIUM 500 MG DR TABLET PO SCH ×2 (08:07→20:32)
[2020-04-07] MEDS: SPIRONOLACTONE 50 MG TABLET PO SCH ×2 (08:08→16:31)
[2020-04-07 16:10] VITALS: BP 110/70
[2020-04-08 03:04] VITALS: BP 108/70
[2020-04-08 08:16] VITALS: BP 118/73
[2020-04-08] MEDS: LevETIRAcetam 250 MG TABLET PO SCH ×2 (08:27→16:35)
[2020-04-08] MEDS: SPIRONOLACTONE 50 MG TABLET PO SCH ×2 (08:28→16:35)
[2020-04-08] MEDS: ARIPiprazole 15 MG TABLET PO SCH (08:28)
[2020-04-08] MEDS: DIVALPROEX SODIUM 500 MG DR TABLET PO SCH ×2 (08:28→20:35)
[2020-04-08 16:13] VITALS: BP_SYST 105; BP_SYST 115; BP_DIAS 76
[2020-04-08] MEDS: LORazepam 2 MG TABLET PO PRN (22:16)
[2020-04-09 05:52] VITALS: BP 115/83
[2020-04-09] MEDS: SPIRONOLACTONE 50 MG TABLET PO SCH ×2 (08:11→16:09)
[2020-04-09] MEDS: DIVALPROEX SODIUM 500 MG DR TABLET PO SCH ×2 (08:11→20:13)
[2020-04-09] MEDS: ARIPiprazole 15 MG TABLET PO SCH (08:11)
[2020-04-09] MEDS: LevETIRAcetam 250 MG TABLET PO SCH ×2 (08:11→16:09)
[2020-04-09 08:18] VITALS: BP 105/78
[2020-04-09 16:29] VITALS: BP 103/60
[2020-04-09] MEDS: LORazepam 2 MG TABLET PO PRN (21:59)
[2020-04-10 05:26] VITALS: BP 114/73
[2020-04-10] MEDS: ARIPiprazole 15 MG TABLET PO SCH (08:09)
[2020-04-10] MEDS: SPIRONOLACTONE 50 MG TABLET PO SCH ×2 (08:09→16:31)
[2020-04-10] MEDS: DIVALPROEX SODIUM 500 MG DR TABLET PO SCH ×2 (08:09→20:32)
[2020-04-10] MEDS: LevETIRAcetam 250 MG TABLET PO SCH ×2 (08:09→16:31)
[2020-04-10 08:38] VITALS: BP 111/72
[2020-04-10 16:11] VITALS: BP 110/69
[2020-04-11 00:22] VITALS: BP 108/71
[2020-04-11] MEDS: DIVALPROEX SODIUM 500 MG DR TABLET PO SCH ×2 (08:19→20:33)
[2020-04-11] MEDS: LevETIRAcetam 250 MG TABLET PO SCH ×2 (08:19→16:44)
[2020-04-11] MEDS: SPIRONOLACTONE 50 MG TABLET PO SCH ×2 (08:19→16:44)
[2020-04-11] MEDS: ARIPiprazole 15 MG TABLET PO SCH (08:19)
[2020-04-11 10:39] VITALS: BP 104/67
[2020-04-11 16:07] VITALS: BP 108/68
[2020-04-12 02:47] VITALS: BP 116/78
[2020-04-12 08:07] VITALS: BP 121/80
[2020-04-12] MEDS: LevETIRAcetam 250 MG TABLET PO SCH ×2 (08:20→16:35)
[2020-04-12] MEDS: ARIPiprazole 15 MG TABLET PO SCH (08:20)
[2020-04-12] MEDS: SPIRONOLACTONE 50 MG TABLET PO SCH ×2 (08:20→16:35)
[2020-04-12] MEDS: DIVALPROEX SODIUM 500 MG DR TABLET PO SCH ×2 (08:20→20:38)
[2020-04-12 16:14] VITALS: BP_SYST 128
[2020-04-12] MEDS: IBUPROFEN 400 MG TABLET PO PRN (16:48)
[2020-04-12] MEDS: LORazepam 2 MG TABLET PO PRN (21:45)
[2020-04-13 00:29] VITALS: BP 112/73
[2020-04-13] MEDS: LevETIRAcetam 250 MG TABLET PO SCH ×2 (08:21→16:29)
[2020-04-13] MEDS: SPIRONOLACTONE 50 MG TABLET PO SCH ×2 (08:21→16:29)
[2020-04-13] MEDS: DIVALPROEX SODIUM 500 MG DR TABLET PO SCH ×2 (08:21→20:30)
[2020-04-13] MEDS: ARIPiprazole 15 MG TABLET PO SCH (08:21)
[2020-04-13] MEDS: IBUPROFEN 400 MG TABLET PO PRN (08:25)
[2020-04-13 08:28] VITALS: BP 114/76
[2020-04-13 16:03] VITALS: BP 112/68
[2020-04-14 00:08] VITALS: BP 115/70
[2020-04-14] MEDS: IBUPROFEN 400 MG TABLET PO PRN ×2 (00:13→20:41)
[2020-04-14] MEDS: LORazepam 2 MG TABLET PO PRN ×3 (04:04→16:49)
[2020-04-14] MEDS: DIVALPROEX SODIUM 500 MG DR TABLET PO SCH ×2 (08:09→20:31)
[2020-04-14] MEDS: ARIPiprazole 15 MG TABLET PO SCH (08:09)
[2020-04-14] MEDS: LevETIRAcetam 250 MG TABLET PO SCH ×2 (08:09→16:35)
[2020-04-14] MEDS: SPIRONOLACTONE 50 MG TABLET PO SCH ×2 (08:09→16:35)
[2020-04-14 08:21] VITALS: BP 116/87
[2020-04-14 16:04] VITALS: BP 129/66
[2020-04-15 02:00] VITALS: BP 131/89
[2020-04-15] MEDS: IBUPROFEN 400 MG TABLET PO PRN ×2 (02:12→09:04)
[2020-04-15] MEDS: LORazepam 2 MG TABLET PO PRN ×3 (02:13→17:09)
[2020-04-15 08:14] VITALS: BP 128/84
[2020-04-15] MEDS: DIVALPROEX SODIUM 500 MG DR TABLET PO SCH ×2 (08:19→20:39)
[2020-04-15] MEDS: SPIRONOLACTONE 50 MG TABLET PO SCH ×2 (08:19→16:35)
[2020-04-15] MEDS: ARIPiprazole 15 MG TABLET PO SCH (08:19)
[2020-04-15] MEDS: LevETIRAcetam 250 MG TABLET PO SCH ×2 (08:19→16:35)
[2020-04-15 16:03] VITALS: BP 131/82
[2020-04-16 00:40] VITALS: BP 113/67
[2020-04-16 08:34] VITALS: BP 115/77
[2020-04-16] MEDS: ARIPiprazole 15 MG TABLET PO SCH (08:35)
[2020-04-16] MEDS: LevETIRAcetam 250 MG TABLET PO SCH ×2 (08:35→17:08)
[2020-04-16] MEDS: LORazepam 2 MG TABLET PO PRN (08:35)
[2020-04-16] MEDS: SPIRONOLACTONE 50 MG TABLET PO SCH ×2 (08:36→21:33)
[2020-04-16] MEDS: DIVALPROEX SODIUM 500 MG DR TABLET PO SCH ×2 (08:36→21:34)
[2020-04-16 16:27] VITALS: BP 110/72
[2020-04-16 21:32] VITALS: BP 113/82
[2020-04-17 00:47] VITALS: BP 116/79
[2020-04-17] MEDS: ARIPiprazole 15 MG TABLET PO SCH (08:23)
[2020-04-17] MEDS: DIVALPROEX SODIUM 500 MG DR TABLET PO SCH ×2 (08:23→20:40)
[2020-04-17] MEDS: SPIRONOLACTONE 50 MG TABLET PO SCH ×2 (08:23→16:21)
[2020-04-17] MEDS: LevETIRAcetam 250 MG TABLET PO SCH ×2 (08:23→16:21)
[2020-04-17 08:26] VITALS: BP 117/86
[2020-04-17 09:04] VITALS: BP 117/86
[2020-04-17] MEDS: IBUPROFEN 400 MG TABLET PO PRN (09:04)
[2020-04-17] MEDS: LORazepam 2 MG TABLET PO PRN ×2 (09:04→20:40)
[2020-04-17 16:03] VITALS: BP 127/78
[2020-04-18 00:27] VITALS: BP 121/64
[2020-04-18 08:24] VITALS: BP 116/83
[2020-04-18] MEDS: ARIPiprazole 15 MG TABLET PO SCH (09:49)
[2020-04-18] MEDS: LevETIRAcetam 250 MG TABLET PO SCH ×2 (09:49→16:58)
[2020-04-18] MEDS: DIVALPROEX SODIUM 500 MG DR TABLET PO SCH ×2 (09:49→20:09)
[2020-04-18] MEDS: SPIRONOLACTONE 50 MG TABLET PO SCH ×2 (09:49→16:58)
[2020-04-18] MEDS: LORazepam 2 MG TABLET PO PRN (12:19)
[2020-04-18] MEDS: IBUPROFEN 400 MG TABLET PO PRN (12:20)
[2020-04-18 16:04] VITALS: BP 114/66
[2020-04-19 00:40] VITALS: BP 113/75
[2020-04-19 08:17] VITALS: BP 117/80
[2020-04-19] MEDS: DIVALPROEX SODIUM 500 MG DR TABLET PO SCH ×2 (08:24→20:33)
[2020-04-19] MEDS: ARIPiprazole 15 MG TABLET PO SCH (08:24)
[2020-04-19] MEDS: SPIRONOLACTONE 50 MG TABLET PO SCH ×2 (08:25→16:30)
[2020-04-19] MEDS: LevETIRAcetam 250 MG TABLET PO SCH ×2 (08:25→16:30)
[2020-04-19] MEDS: LORazepam 2 MG TABLET PO PRN ×2 (09:05→19:08)
[2020-04-19 16:13] VITALS: BP 119/93
[2020-04-19 19:06] VITALS: BP 113/76
[2020-04-19] MEDS: IBUPROFEN 400 MG TABLET PO PRN (19:08)
[2020-04-20 00:28] VITALS: BP 118/81
[2020-04-20 08:33] VITALS: BP 114/79
[2020-04-20] MEDS: ARIPiprazole 15 MG TABLET PO SCH (08:40)
[2020-04-20] MEDS: DIVALPROEX SODIUM 500 MG DR TABLET PO SCH ×2 (08:41→20:31)
[2020-04-20] MEDS: LevETIRAcetam 250 MG TABLET PO SCH ×2 (08:41→16:39)
[2020-04-20] MEDS: SPIRONOLACTONE 50 MG TABLET PO SCH ×2 (09:00→16:39)
[2020-04-20] MEDS: IBUPROFEN 400 MG TABLET PO PRN (09:03)
[2020-04-20] MEDS: LORazepam 2 MG TABLET PO PRN (09:03)
[2020-04-20 16:04] VITALS: BP 121/67
[2020-04-21 00:07] VITALS: BP 118/78
[2020-04-21 08:32] VITALS: BP 117/61
[2020-04-21] MEDS: ARIPiprazole 15 MG TABLET PO SCH (08:48)
[2020-04-21] MEDS: LORazepam 2 MG TABLET PO PRN (08:49)
[2020-04-21] MEDS: SPIRONOLACTONE 50 MG TABLET PO SCH ×2 (08:49→16:26)
[2020-04-21] MEDS: IBUPROFEN 400 MG TABLET PO PRN (08:49)
[2020-04-21] MEDS: LevETIRAcetam 250 MG TABLET PO SCH ×2 (08:49→16:26)
[2020-04-21] MEDS: DIVALPROEX SODIUM 500 MG DR TABLET PO SCH ×2 (08:50→20:55)
[2020-04-21 16:19] VITALS: BP 124/65
[2020-04-22 00:34] VITALS: BP 112/72
[2020-04-22 08:39] VITALS: BP 107/79
[2020-04-22] MEDS: SPIRONOLACTONE 50 MG TABLET PO SCH ×2 (08:39→16:32)
[2020-04-22] MEDS: LevETIRAcetam 250 MG TABLET PO SCH ×2 (08:39→16:32)
[2020-04-22] MEDS: IBUPROFEN 400 MG TABLET PO PRN (08:39)
[2020-04-22] MEDS: LORazepam 2 MG TABLET PO PRN (08:39)
[2020-04-22] MEDS: ARIPiprazole 15 MG TABLET PO SCH (08:39)
[2020-04-22] MEDS: DIVALPROEX SODIUM 500 MG DR TABLET PO SCH ×2 (08:39→20:34)
[2020-04-22 16:04] VITALS: BP 120/70
[2020-04-23 01:15] VITALS: BP 118/71
[2020-04-23] MEDS: IBUPROFEN 400 MG TABLET PO PRN ×3 (01:21→20:34)
[2020-04-23] MEDS: LORazepam 2 MG TABLET PO PRN ×3 (01:21→20:34)
[2020-04-23 08:43] VITALS: BP 118/64
[2020-04-23] MEDS: ARIPiprazole 15 MG TABLET PO SCH (08:44)
[2020-04-23] MEDS: DIVALPROEX SODIUM 500 MG DR TABLET PO SCH ×2 (08:44→20:35)
[2020-04-23] MEDS: SPIRONOLACTONE 50 MG TABLET PO SCH ×2 (08:45→17:42)
[2020-04-23] MEDS: LevETIRAcetam 250 MG TABLET PO SCH ×2 (08:45→17:42)
[2020-04-23 10:19] VITALS: BP 118/77
[2020-04-23 16:37] VITALS: BP 111/84
[2020-04-24] MEDS: DIVALPROEX SODIUM 500 MG DR TABLET PO SCH ×2 (08:21→20:08)
[2020-04-24] MEDS: ARIPiprazole 15 MG TABLET PO SCH (08:21)
[2020-04-24] MEDS: LevETIRAcetam 250 MG TABLET PO SCH ×2 (08:21→16:16)
[2020-04-24] MEDS: SPIRONOLACTONE 50 MG TABLET PO SCH ×2 (08:21→16:16)
[2020-04-24 08:28] VITALS: BP 112/73
[2020-04-24] MEDS: IBUPROFEN 400 MG TABLET PO PRN (08:55)
[2020-04-24] MEDS: LORazepam 2 MG TABLET PO PRN (08:55)
[2020-04-24 16:33] VITALS: BP 105/88
[2020-04-25 01:59] VITALS: BP 110/79
[2020-04-25 08:06] VITALS: BP 110/72
[2020-04-25] MEDS: LevETIRAcetam 250 MG TABLET PO SCH ×2 (08:15→17:13)
[2020-04-25] MEDS: SPIRONOLACTONE 50 MG TABLET PO SCH ×2 (08:15→17:13)
[2020-04-25] MEDS: DIVALPROEX SODIUM 500 MG DR TABLET PO SCH ×2 (08:15→20:30)
[2020-04-25] MEDS: ARIPiprazole 15 MG TABLET PO SCH (08:15)
[2020-04-25] MEDS: LORazepam 2 MG TABLET PO PRN ×2 (09:45→22:01)
[2020-04-25] MEDS: IBUPROFEN 400 MG TABLET PO PRN ×2 (09:45→22:01)
[2020-04-25 16:25] VITALS: BP 95/57
[2020-04-25 17:00] VITALS: BP 107/69
[2020-04-25 17:21] VITALS: BP 117/69
[2020-04-25 21:58] VITALS: BP 109/68
[2020-04-26 01:01] VITALS: BP 110/70
[2020-04-26] MEDS: ARIPiprazole 15 MG TABLET PO SCH (08:44)
[2020-04-26] MEDS: DIVALPROEX SODIUM 500 MG DR TABLET PO SCH ×2 (08:44→20:28)
[2020-04-26] MEDS: LevETIRAcetam 250 MG TABLET PO SCH ×2 (08:44→17:22)
[2020-04-26 08:56] VITALS: BP 106/66
[2020-04-26] MEDS: SPIRONOLACTONE 50 MG TABLET PO SCH ×2 (09:17→17:00)
[2020-04-26] MEDS: LORazepam 2 MG TABLET PO PRN (09:59)
[2020-04-26] MEDS: IBUPROFEN 400 MG TABLET PO PRN (09:59)
[2020-04-26 16:06] VITALS: BP_SYST 100
[2020-04-26 17:23] VITALS: BP 100/57
[2020-04-27 02:45] VITALS: BP 103/64
[2020-04-27] MEDS: LevETIRAcetam 250 MG TABLET PO SCH ×2 (08:12→16:29)
[2020-04-27] MEDS: ARIPiprazole 15 MG TABLET PO SCH (08:12)
[2020-04-27] MEDS: SPIRONOLACTONE 50 MG TABLET PO SCH ×2 (08:12→16:29)
[2020-04-27] MEDS: DIVALPROEX SODIUM 500 MG DR TABLET PO SCH ×2 (08:12→20:33)
[2020-04-27 09:28] VITALS: BP 125/67
[2020-04-27 16:03] VITALS: BP 110/64
[2020-04-28 00:32] VITALS: BP 102/63
[2020-04-28 08:02] VITALS: BP 100/60
[2020-04-28] MEDS: LevETIRAcetam 250 MG TABLET PO SCH ×2 (08:08→16:07)
[2020-04-28] MEDS: ARIPiprazole 15 MG TABLET PO SCH (08:08)
[2020-04-28] MEDS: SPIRONOLACTONE 50 MG TABLET PO SCH ×2 (08:08→16:07)
[2020-04-28] MEDS: DIVALPROEX SODIUM 500 MG DR TABLET PO SCH ×2 (08:09→20:03)
[2020-04-28 16:06] VITALS: BP 102/69
[2020-04-28] MEDS: LORazepam 2 MG TABLET PO PRN (20:12)
[2020-04-29 04:27] VITALS: BP 110/65
[2020-04-29 08:11] VITALS: BP 110/78
[2020-04-29] MEDS: DIVALPROEX SODIUM 500 MG DR TABLET PO SCH ×2 (08:18→20:47)
[2020-04-29] MEDS: LevETIRAcetam 250 MG TABLET PO SCH ×2 (08:18→16:28)
[2020-04-29] MEDS: ARIPiprazole 15 MG TABLET PO SCH (08:19)
[2020-04-29] MEDS: SPIRONOLACTONE 50 MG TABLET PO SCH ×2 (08:19→16:28)
[2020-04-29 16:13] VITALS: BP 111/62
[2020-04-29 20:11] VITALS: BP 117/60
[2020-04-29] MEDS: LORazepam 2 MG TABLET PO PRN (20:12)
[2020-04-30 00:04] VITALS: BP 99/63
[2020-04-30] MEDS: DIVALPROEX SODIUM 500 MG DR TABLET PO SCH ×2 (08:24→20:39)
[2020-04-30] MEDS: LevETIRAcetam 250 MG TABLET PO SCH ×2 (08:24→16:27)
[2020-04-30] MEDS: ARIPiprazole 15 MG TABLET PO SCH (08:24)
[2020-04-30] MEDS: SPIRONOLACTONE 50 MG TABLET PO SCH ×2 (08:25→16:28)
[2020-04-30 08:37] VITALS: BP_SYST 116; BP_SYST 126; BP_DIAS 69; BP_DIAS 71
[2020-04-30 16:05] VITALS: BP 112/62
[2020-04-30] MEDS: LORazepam 2 MG TABLET PO PRN (22:22)
[2020-05-01 00:56] VITALS: BP 115/78
[2020-05-01 08:21] VITALS: BP 116/64
[2020-05-01] MEDS: ARIPiprazole 15 MG TABLET PO SCH (08:28)
[2020-05-01] MEDS: DIVALPROEX SODIUM 500 MG DR TABLET PO SCH ×2 (08:28→20:22)
[2020-05-01] MEDS: LevETIRAcetam 250 MG TABLET PO SCH ×2 (08:29→16:40)
[2020-05-01] MEDS: SPIRONOLACTONE 50 MG TABLET PO SCH ×2 (08:29→16:40)
[2020-05-01 16:21] VITALS: BP 100/64
[2020-05-01] MEDS: LORazepam 2 MG TABLET PO PRN (21:36)
[2020-05-02 00:54] VITALS: BP 113/67
[2020-05-02] MEDS: DIVALPROEX SODIUM 500 MG DR TABLET PO SCH ×2 (08:04→20:13)
[2020-05-02] MEDS: LevETIRAcetam 250 MG TABLET PO SCH ×2 (08:04→16:16)
[2020-05-02] MEDS: LORazepam 2 MG TABLET PO PRN ×2 (08:04→20:29)
[2020-05-02] MEDS: ARIPiprazole 15 MG TABLET PO SCH (08:04)
[2020-05-02] MEDS: SPIRONOLACTONE 50 MG TABLET PO SCH ×2 (08:04→16:16)
[2020-05-02 08:12] VITALS: BP 100/63
[2020-05-02 16:13] VITALS: BP 104/63
[2020-05-03 02:20] VITALS: BP 113/74
[2020-05-03 08:08] VITALS: BP 127/77
[2020-05-03] MEDS: LevETIRAcetam 250 MG TABLET PO SCH ×2 (08:32→16:32)
[2020-05-03] MEDS: ARIPiprazole 15 MG TABLET PO SCH (08:32)
[2020-05-03] MEDS: SPIRONOLACTONE 50 MG TABLET PO SCH ×2 (08:32→16:32)
[2020-05-03] MEDS: DIVALPROEX SODIUM 500 MG DR TABLET PO SCH ×2 (08:32→20:38)
[2020-05-03 16:10] VITALS: BP 110/72
[2020-05-03] MEDS: LORazepam 2 MG TABLET PO PRN (17:47)
[2020-05-04 00:07] VITALS: BP 100/69
[2020-05-04 08:05] VITALS: BP 100/66
[2020-05-04] MEDS: ARIPiprazole 15 MG TABLET PO SCH (08:09)
[2020-05-04] MEDS: DIVALPROEX SODIUM 500 MG DR TABLET PO SCH (08:09)
[2020-05-04] MEDS: SPIRONOLACTONE 50 MG TABLET PO SCH (08:09)
[2020-05-04] MEDS: LevETIRAcetam 250 MG TABLET PO SCH (08:09)
[2020-05-04] MEDS ORDERED: ARIP15TA2 PO (10:54)
== END 2020-05-04 12:15 | disposition home or self-care (01) | DRG 885 ==
LOC: B2X 15:03
PROVIDERS: ADMIT Psychiatry & Neurology Child & Adolescent Psychiatry
DX: F25.0 Schizoaffective disorder, bipolar type (principal); G40.909 Epilepsy, unspecified, not intractable, without status epilepticus; M25.572 Pain in left ankle and joints of left foot; K21.9 Gastro-esophageal reflux disease without esophagitis; D72.819 Decreased white blood cell count, unspecified; G44.209 Tension-type headache, unspecified, not intractable; Z59.0 Homelessness; K59.00 Constipation, unspecified; F19.10 Other psychoactive substance abuse, uncomplicated; F41.9 Anxiety disorder, unspecified; Z91.041 Radiographic dye allergy status; Z88.8 Allergy status to other drugs, medicaments and biological substances; Z88.5 Allergy status to narcotic agent; Z03.818 Encounter for observation for suspected exposure to other biological agents ruled out
CPT/HCPCS: 80307; 83036; 86592; 87081; 87426

== ENCOUNTER 2021-07-07 14:44 | Inpatient (IN) | payer MEDICARE, MEDICAID ==
[~2021-07-07] VITALS: Ht 172.7 cm; Wt 73.6 kg
[~2021-07-07 14:44] MED LIST changes: -ARIP15TA2 PO; +ARIP15TA27 PO; +LEVE250T4 PO; -LEVE250T55 PO; -SPIR50 PO; +SPIR50TA27 PO
[2021-07-07] MEDS ORDERED: QUEtiapine FUMARATE 100 MG TABLET PO PRN (18:45)
[2021-07-07] MEDS ORDERED: ZOLPIDEM TARTRATE 10 MG TABLET PO PRN (18:45)
[2021-07-07 19:21] VITALS: BP 107/72
[2021-07-07] MEDS ORDERED: INFLUENZA VIRUS VACCINE QVS 2021-22 (6MO+)/PF 60 MCG/0.5 ML SYRINGE IM. ONE (20:00)
[2021-07-08 00:36] VITALS: BP 106/68
[2021-07-08] MEDS ORDERED: GuaiFENesin/D-METHORPHAN [SUGAR-FREE] 200-20MG/10 ML SYRUP UDCUP PO PRN (06:45)
[2021-07-08] MEDS ORDERED: CloNIDine HCL 0.1 MG TABLET PO PRN (06:45)
[2021-07-08] MEDS ORDERED: ACETAMINOPHEN 325 MG TABLET PO PRN (06:45)
[2021-07-08] MEDS ORDERED: IBUPROFEN 400 MG TABLET PO PRN (06:45)
[2021-07-08] MEDS ORDERED: MAG HYDROX/AL HYDROX/SIMETH ES 30 ML SUSPENSION UDCUP PO PRN (06:45)
[2021-07-08] MEDS ORDERED: PETROLATUM,WHITE 28 GM JELLY TP PRN (06:45)
[2021-07-08] MEDS ORDERED: DOCUSATE SODIUM 100 MG CAPSULE PO PRN (06:45)
[2021-07-08] MEDS ORDERED: ONDANSETRON HCL 4 MG TABLET PO PRN (06:45)
[2021-07-08] MEDS ORDERED: NICOTINE 14 MG/24 HOUR PATCH TD PRN (06:45)
[2021-07-08] MEDS ORDERED: MAGNESIUM HYDROXIDE SUSPENSION 30 ML UDCUP PO PRN (06:45)
[2021-07-08] MEDS ORDERED: ALBUTEROL SULFATE HFA 90 MCG/PUFF 8 GM INHALER IH PRN (06:45)
[2021-07-08] MEDS ORDERED: LOPERAMIDE HCL 2 MG CAPSULE PO PRN (06:45)
[2021-07-08 08:02] LABS: EOSINOPHILS % (AUTO) 2.5 % (1.0-6.0); HEMATOCRIT 39.8 % (36-46); HEMOGLOBIN 13.7 g/dL (12.0-16.0); LYMPHOCYTES % (AUTO) 43.7 % (22.0-44.0); MEAN CORPUSCULAR HEMOGLOBIN 33.1 pg (26.0-34.0); MEAN CORPUSCULAR HGB CONC 34.4 G/dL (31.0-37.0); MEAN CORPUSCULAR VOLUME 96 fL (80-100); MONOCYTES # (AUTO) 0.5 K/uL (0.1-1.0); MONOCYTES % (AUTO) 11.7 % (2.0-9.0); NEUTROPHILS # (AUTO) 1.9 K/uL (1.8-7.7); NEUTROPHILS % (AUTO) 41.1 % (40.0-70.0); PLATELET COUNT (AUTO) 216 K/uL (150-450); RED BLOOD CELL COUNT(AUTO) 4.15 MIL/uL (4.00-5.20); RED CELL DISTRIBUTION WIDTH 12.9 % (11.5-14.5)
[2021-07-08 08:10] LABS: HEMOGLOBIN A1C 4.5 % (3.8-5.6)
[2021-07-08 08:28] LABS: ALANINE AMINOTRANSFERASE 23 U/L (12-78); ALBUMIN 3.6 g/dL (3.4-5.0); ALKALINE PHOSPHATASE 34 U/L (46-116); ANION GAP 8 mmol/L (8-16); ASPARTATE AMINOTRANSFERASE 22 U/L (15-37); BILIRUBIN,TOTAL 0.6 mg/dL (0.1-1.0); CARBON DIOXIDE 26 mmol/L (22-29); CHLORIDE 104 mmol/L (98-107); CHOL/HDL RATIO 3.1 (3.9-5.7); CHOLESTEROL 176 mg/dL (131-200); CREATININE 0.65 mg/dL (0.60-1.30); FREE T4 (FREE THYROXINE) 1.23 ng/dL (0.76-1.46); GLOMERULAR FILTR. RATE CALC > 60 mL/min (>60); GLUCOSE,RANDOM 84 mg/dL (70-110); HCG,QUANTITATIVE < 1 mIU/mL (0-6); HDL CHOLESTEROL 56 mg/dL (40-60); LDL CHOL (CALC.) 107 mg/dL (0-130); POTASSIUM 4.1 mmol/L (3.5-5.1); SODIUM SERUM 138 mmol/L (136-145); THYROID STIMULATING HORMONE 2.46 uIU/mL (0.36-3.74); TOTAL PROTEIN, SERUM 6.8 g/dL (6.4-8.2); TRIGLYCERIDES 63 mg/dL (15-150); UREA NITROGEN, BLOOD 9 mg/dL (7-18)
[2021-07-08 08:32] VITALS: BP 113/78
[2021-07-08] MEDS: LevETIRAcetam 250 MG TABLET PO SCH ×2 (09:00→16:16)
[2021-07-08] MEDS: SPIRONOLACTONE 50 MG TABLET PO SCH ×2 (09:00→16:16)
[2021-07-08] MEDS: ARIPiprazole 15 MG TABLET PO SCH (12:15)
[2021-07-08] MEDS: DIVALPROEX SODIUM 500 MG DR TABLET PO SCH ×2 (12:15→20:11)
[2021-07-08 16:17] VITALS: BP 120/78
[2021-07-08] MEDS: LORazepam 2 MG TABLET PO PRN (16:37)
[2021-07-09 00:13] VITALS: BP 108/90
[2021-07-09 08:13] VITALS: BP 104/65
[2021-07-09] MEDS: DIVALPROEX SODIUM 500 MG DR TABLET PO SCH ×2 (08:57→20:13)
[2021-07-09] MEDS: ARIPiprazole 15 MG TABLET PO SCH (08:57)
[2021-07-09] MEDS: LevETIRAcetam 250 MG TABLET PO SCH ×2 (08:57→16:34)
[2021-07-09] MEDS: SPIRONOLACTONE 50 MG TABLET PO SCH ×2 (08:57→16:34)
[2021-07-09 16:00] VITALS: BP 121/72
[2021-07-09] MEDS: LORazepam 2 MG TABLET PO PRN (20:22)
[2021-07-10 00:10] VITALS: BP 128/73
[2021-07-10 08:31] VITALS: BP 112/74
[2021-07-10] MEDS: LevETIRAcetam 250 MG TABLET PO SCH ×2 (08:37→16:18)
[2021-07-10] MEDS: SPIRONOLACTONE 50 MG TABLET PO SCH ×2 (08:37→16:18)
[2021-07-10] MEDS: ARIPiprazole 15 MG TABLET PO SCH (08:37)
[2021-07-10] MEDS: DIVALPROEX SODIUM 500 MG DR TABLET PO SCH ×2 (08:37→20:15)
[2021-07-10 16:07] VITALS: BP 101/65
[2021-07-11 00:14] VITALS: BP 113/65
[2021-07-11] MEDS: SPIRONOLACTONE 50 MG TABLET PO SCH ×2 (08:20→16:08)
[2021-07-11] MEDS: DIVALPROEX SODIUM 500 MG DR TABLET PO SCH ×2 (08:20→20:16)
[2021-07-11] MEDS: LevETIRAcetam 250 MG TABLET PO SCH ×2 (08:20→16:08)
[2021-07-11] MEDS: ARIPiprazole 15 MG TABLET PO SCH (08:21)
[2021-07-11 09:00] VITALS: BP 107/69
[2021-07-11 16:00] VITALS: BP 100/60
[2021-07-12 00:22] VITALS: BP 134/69
[2021-07-12 08:25] VITALS: BP 106/63
[2021-07-12] MEDS: ARIPiprazole 15 MG TABLET PO SCH (08:30)
[2021-07-12] MEDS: LevETIRAcetam 250 MG TABLET PO SCH ×2 (08:30→17:07)
[2021-07-12] MEDS: DIVALPROEX SODIUM 500 MG DR TABLET PO SCH ×2 (08:30→20:13)
[2021-07-12] MEDS: SPIRONOLACTONE 50 MG TABLET PO SCH ×3 (08:30→17:50)
[2021-07-12 09:41] LABS: COVID AG,FIA SOURCE NASOPHARYNGEAL
[2021-07-12 16:15] VITALS: BP 106/58
[2021-07-13 05:35] VITALS: BP 102/62
[2021-07-13 08:14] VITALS: BP 92/68
[2021-07-13] MEDS: ARIPiprazole 15 MG TABLET PO SCH (08:28)
[2021-07-13] MEDS: LevETIRAcetam 250 MG TABLET PO SCH ×2 (08:28→17:13)
[2021-07-13] MEDS: DIVALPROEX SODIUM 500 MG DR TABLET PO SCH ×2 (08:28→20:52)
[2021-07-13] MEDS: SPIRONOLACTONE 50 MG TABLET PO SCH ×2 (08:28→17:13)
[2021-07-13 16:07] VITALS: BP 99/62
[2021-07-13 17:13] VITALS: BP 113/75
[2021-07-14 01:01] VITALS: BP 116/73
[2021-07-14 08:17] VITALS: BP 103/64
[2021-07-14] MEDS: ARIPiprazole 15 MG TABLET PO SCH (08:18)
[2021-07-14] MEDS: LevETIRAcetam 250 MG TABLET PO SCH ×2 (08:18→15:56)
[2021-07-14] MEDS: SPIRONOLACTONE 50 MG TABLET PO SCH ×2 (08:18→15:56)
[2021-07-14] MEDS: DIVALPROEX SODIUM 500 MG DR TABLET PO SCH ×2 (08:18→20:09)
[2021-07-14 16:08] VITALS: BP 100/65
[2021-07-15 06:21] VITALS: BP 102/66
[2021-07-15 08:07] VITALS: BP 117/63
[2021-07-15] MEDS: SPIRONOLACTONE 50 MG TABLET PO SCH ×2 (08:12→17:36)
[2021-07-15] MEDS: LevETIRAcetam 250 MG TABLET PO SCH ×2 (08:12→17:36)
[2021-07-15] MEDS: ARIPiprazole 15 MG TABLET PO SCH (08:13)
[2021-07-15] MEDS: DIVALPROEX SODIUM 500 MG DR TABLET PO SCH ×2 (08:15→20:17)
[2021-07-15] MEDS: LORazepam 2 MG TABLET PO PRN (12:32)
[2021-07-15 16:16] VITALS: BP 103/67
[2021-07-15 17:36] VITALS: BP 109/78
[2021-07-16 00:38] VITALS: BP 110/65
[2021-07-16 08:05] VITALS: BP 106/75
[2021-07-16] MEDS: DIVALPROEX SODIUM 500 MG DR TABLET PO SCH ×2 (08:17→20:01)
[2021-07-16] MEDS: SPIRONOLACTONE 50 MG TABLET PO SCH ×2 (08:17→16:15)
[2021-07-16] MEDS: ARIPiprazole 15 MG TABLET PO SCH (08:17)
[2021-07-16] MEDS: LevETIRAcetam 250 MG TABLET PO SCH ×2 (08:17→16:15)
[2021-07-16 16:14] VITALS: BP 109/63
[2021-07-17 05:02] VITALS: BP 112/66
[2021-07-17 08:19] VITALS: BP 109/64
[2021-07-17] MEDS: LORazepam 2 MG TABLET PO PRN (08:37)
[2021-07-17] MEDS: SPIRONOLACTONE 50 MG TABLET PO SCH ×2 (08:38→17:05)
[2021-07-17] MEDS: LevETIRAcetam 250 MG TABLET PO SCH ×2 (08:38→17:05)
[2021-07-17] MEDS: ARIPiprazole 15 MG TABLET PO SCH (08:39)
[2021-07-17] MEDS: DIVALPROEX SODIUM 500 MG DR TABLET PO SCH ×2 (08:39→20:54)
[2021-07-17 16:09] VITALS: BP 109/64
[2021-07-18 00:06] VITALS: BP 109/72
[2021-07-18 08:08] VITALS: BP 102/76
[2021-07-18] MEDS: LevETIRAcetam 250 MG TABLET PO SCH ×2 (08:31→16:29)
[2021-07-18] MEDS: SPIRONOLACTONE 50 MG TABLET PO SCH ×2 (08:31→16:29)
[2021-07-18] MEDS: DIVALPROEX SODIUM 500 MG DR TABLET PO SCH ×2 (08:32→20:45)
[2021-07-18] MEDS: ARIPiprazole 15 MG TABLET PO SCH (08:32)
[2021-07-18] MEDS: LORazepam 2 MG TABLET PO PRN (08:36)
[2021-07-18 10:07] LABS: GLUCOMETER DEV NAME(LOC) POC.BV
[2021-07-18 16:37] VITALS: BP 117/68
[2021-07-19 01:52] VITALS: BP 105/63
[2021-07-19 08:17] VITALS: BP 116/64
[2021-07-19] MEDS: LevETIRAcetam 250 MG TABLET PO SCH ×2 (08:27→16:28)
[2021-07-19] MEDS: SPIRONOLACTONE 50 MG TABLET PO SCH ×2 (08:27→16:28)
[2021-07-19] MEDS: DIVALPROEX SODIUM 500 MG DR TABLET PO SCH ×2 (08:28→20:27)
[2021-07-19] MEDS: ARIPiprazole 15 MG TABLET PO SCH (08:28)
[2021-07-19 16:09] VITALS: BP 109/67
[2021-07-19] MEDS: LORazepam 2 MG TABLET PO PRN (23:48)
[2021-07-20] VITALS: BP 106/62
[2021-07-20] MEDS: DIVALPROEX SODIUM 500 MG DR TABLET PO SCH ×2 (08:03→20:11)
[2021-07-20] MEDS: ARIPiprazole 15 MG TABLET PO SCH (08:03)
[2021-07-20] MEDS: SPIRONOLACTONE 50 MG TABLET PO SCH ×2 (08:03→16:26)
[2021-07-20] MEDS: LevETIRAcetam 250 MG TABLET PO SCH ×2 (08:03→16:26)
[2021-07-20 08:08] VITALS: BP 108/72
[2021-07-20] MEDS: LORazepam 2 MG TABLET PO PRN (15:05)
[2021-07-20 16:27] VITALS: BP 119/68
[2021-07-21 01:33] VITALS: BP 116/72
[2021-07-21 08:07] VITALS: BP 114/85
[2021-07-21] MEDS: ARIPiprazole 15 MG TABLET PO SCH (08:25)
[2021-07-21] MEDS: DIVALPROEX SODIUM 500 MG DR TABLET PO SCH ×2 (08:25→20:31)
[2021-07-21] MEDS: LevETIRAcetam 250 MG TABLET PO SCH ×2 (08:25→16:36)
[2021-07-21] MEDS: SPIRONOLACTONE 50 MG TABLET PO SCH ×2 (08:25→16:36)
[2021-07-21 16:07] VITALS: BP 109/63
[2021-07-21] MEDS: LORazepam 2 MG TABLET PO PRN (21:05)
[2021-07-22 01:25] VITALS: BP 124/73
[2021-07-22] MEDS: LevETIRAcetam 250 MG TABLET PO SCH ×2 (08:12→16:35)
[2021-07-22] MEDS: DIVALPROEX SODIUM 500 MG DR TABLET PO SCH ×2 (08:12→20:29)
[2021-07-22] MEDS: ARIPiprazole 15 MG TABLET PO SCH (08:12)
[2021-07-22] MEDS: SPIRONOLACTONE 50 MG TABLET PO SCH ×2 (08:12→16:35)
[2021-07-22 08:16] VITALS: BP 109/72
[2021-07-22 16:14] VITALS: BP 113/71
[2021-07-22] MEDS: LORazepam 2 MG TABLET PO PRN (20:23)
[2021-07-23 01:38] VITALS: BP 111/72
[2021-07-23 08:07] VITALS: BP 107/67
[2021-07-23] MEDS: DIVALPROEX SODIUM 500 MG DR TABLET PO SCH ×2 (08:20→20:23)
[2021-07-23] MEDS: ARIPiprazole 15 MG TABLET PO SCH (08:21)
[2021-07-23] MEDS: LevETIRAcetam 250 MG TABLET PO SCH ×2 (08:21→17:36)
[2021-07-23] MEDS: SPIRONOLACTONE 50 MG TABLET PO SCH ×2 (08:21→17:36)
[2021-07-23 16:18] VITALS: BP 105/62
[2021-07-24 00:42] VITALS: BP 105/62
[2021-07-24] MEDS: SPIRONOLACTONE 50 MG TABLET PO SCH ×2 (08:02→16:07)
[2021-07-24] MEDS: DIVALPROEX SODIUM 500 MG DR TABLET PO SCH ×2 (08:02→20:24)
[2021-07-24] MEDS: ARIPiprazole 15 MG TABLET PO SCH (08:02)
[2021-07-24] MEDS: LevETIRAcetam 250 MG TABLET PO SCH ×2 (08:02→16:07)
[2021-07-24 08:25] VITALS: BP 104/64
[2021-07-24 16:15] VITALS: BP 112/75
[2021-07-25 00:51] VITALS: BP 116/76
[2021-07-25 08:10] LABS: COVID AG,FIA SOURCE NASOPHARYNGEAL
[2021-07-25] MEDS: LevETIRAcetam 250 MG TABLET PO SCH ×2 (09:01→17:11)
[2021-07-25] MEDS: DIVALPROEX SODIUM 500 MG DR TABLET PO SCH ×2 (09:02→20:42)
[2021-07-25] MEDS: ARIPiprazole 15 MG TABLET PO SCH (09:02)
[2021-07-25] MEDS: SPIRONOLACTONE 50 MG TABLET PO SCH ×2 (09:02→17:11)
[2021-07-25 09:30] VITALS: BP 111/73
[2021-07-25 16:13] VITALS: BP 102/65
[2021-07-25 17:07] VITALS: BP 117/72
[2021-07-26 04:15] VITALS: BP 109/60
[2021-07-26 08:07] VITALS: BP 114/80
[2021-07-26] MEDS: DIVALPROEX SODIUM 500 MG DR TABLET PO SCH ×2 (09:13→20:32)
[2021-07-26] MEDS: LevETIRAcetam 250 MG TABLET PO SCH ×2 (09:13→17:13)
[2021-07-26] MEDS: SPIRONOLACTONE 50 MG TABLET PO SCH ×2 (09:13→17:13)
[2021-07-26] MEDS: ARIPiprazole 15 MG TABLET PO SCH (09:13)
[2021-07-26 16:06] VITALS: BP 112/69
[2021-07-27 01:51] VITALS: BP 124/86
[2021-07-27 08:24] VITALS: BP 103/76
[2021-07-27] MEDS: ARIPiprazole 15 MG TABLET PO SCH (09:10)
[2021-07-27] MEDS: SPIRONOLACTONE 50 MG TABLET PO SCH ×2 (09:11→16:32)
[2021-07-27] MEDS: LevETIRAcetam 250 MG TABLET PO SCH ×2 (09:11→16:33)
[2021-07-27] MEDS: DIVALPROEX SODIUM 500 MG DR TABLET PO SCH ×2 (09:13→20:28)
[2021-07-27] MEDS: LORazepam 2 MG TABLET PO PRN (09:28)
[2021-07-27] MEDS ORDERED: TUBERCULIN, PURIFIED PROTEIN DERIVATIVE 5 TU/0.1 ML SYRINGE ID ONE (15:00)
[2021-07-27 16:10] VITALS: BP 112/71
[2021-07-28 02:31] VITALS: BP 116/74
[2021-07-28 08:25] VITALS: BP 127/88
[2021-07-28] MEDS: LevETIRAcetam 250 MG TABLET PO SCH ×2 (08:27→17:26)
[2021-07-28] MEDS: DIVALPROEX SODIUM 500 MG DR TABLET PO SCH ×2 (08:28→21:03)
[2021-07-28] MEDS: SPIRONOLACTONE 50 MG TABLET PO SCH ×2 (08:28→17:26)
[2021-07-28] MEDS: ARIPiprazole 15 MG TABLET PO SCH (08:28)
[2021-07-28] MEDS: MULTIVITAMINS, THERAPEUTIC TABLET PO SCH (09:00)
[2021-07-28 16:06] VITALS: BP 130/82
[2021-07-29 00:23] VITALS: BP 126/69
[2021-07-29] MEDS: MULTIVITAMINS, THERAPEUTIC TABLET PO SCH (09:00)
[2021-07-29] MEDS: SPIRONOLACTONE 50 MG TABLET PO SCH ×2 (09:28→16:23)
[2021-07-29] MEDS: LevETIRAcetam 250 MG TABLET PO SCH ×2 (09:28→16:23)
[2021-07-29] MEDS: DIVALPROEX SODIUM 500 MG DR TABLET PO SCH ×2 (09:28→20:32)
[2021-07-29] MEDS: ARIPiprazole 15 MG TABLET PO SCH (09:28)
[2021-07-29 10:51] VITALS: BP 110/77
[2021-07-29 16:08] VITALS: BP 102/72
[2021-07-30 01:12] VITALS: BP 118/82
[2021-07-30 08:08] VITALS: BP 116/76
[2021-07-30] MEDS: MULTIVITAMINS, THERAPEUTIC TABLET PO SCH (08:36)
[2021-07-30] MEDS: ARIPiprazole 15 MG TABLET PO SCH (08:36)
[2021-07-30] MEDS: DIVALPROEX SODIUM 500 MG DR TABLET PO SCH ×2 (08:36→20:13)
[2021-07-30] MEDS: SPIRONOLACTONE 50 MG TABLET PO SCH ×2 (08:37→16:49)
[2021-07-30] MEDS: LevETIRAcetam 250 MG TABLET PO SCH ×2 (08:37→16:48)
[2021-07-30 16:23] VITALS: BP 133/97
[2021-07-31 01:20] VITALS: BP 124/62
[2021-07-31 08:13] VITALS: BP 138/83
[2021-07-31] MEDS: SPIRONOLACTONE 50 MG TABLET PO SCH ×2 (08:33→15:58)
[2021-07-31] MEDS: ARIPiprazole 15 MG TABLET PO SCH (08:33)
[2021-07-31] MEDS: MULTIVITAMINS, THERAPEUTIC TABLET PO SCH (08:34)
[2021-07-31] MEDS: DIVALPROEX SODIUM 500 MG DR TABLET PO SCH ×2 (08:34→20:08)
[2021-07-31] MEDS: LevETIRAcetam 250 MG TABLET PO SCH ×2 (08:34→15:58)
[2021-07-31 16:06] VITALS: BP 128/81
[2021-08-01 04:13] VITALS: BP 125/81
[2021-08-01 08:37] VITALS: BP 134/92
[2021-08-01] MEDS: MULTIVITAMINS, THERAPEUTIC TABLET PO SCH ×2 (09:00→09:15)
[2021-08-01] MEDS: ARIPiprazole 15 MG TABLET PO SCH (09:14)
[2021-08-01] MEDS: SPIRONOLACTONE 50 MG TABLET PO SCH ×2 (09:14→16:28)
[2021-08-01] MEDS: LevETIRAcetam 250 MG TABLET PO SCH ×2 (09:15→16:28)
[2021-08-01] MEDS: DIVALPROEX SODIUM 500 MG DR TABLET PO SCH ×2 (09:15→20:29)
[2021-08-01 16:15] VITALS: BP 119/83
[2021-08-01] MEDS: LORazepam 2 MG TABLET PO PRN (18:34)
[2021-08-02 00:09] VITALS: BP 129/85
[2021-08-02 08:07] VITALS: BP 113/77
[2021-08-02] MEDS: MULTIVITAMINS, THERAPEUTIC TABLET PO SCH (09:00)
[2021-08-02] MEDS: ARIPiprazole 15 MG TABLET PO SCH (09:13)
[2021-08-02] MEDS: DIVALPROEX SODIUM 500 MG DR TABLET PO SCH ×2 (09:13→20:28)
[2021-08-02] MEDS: LevETIRAcetam 250 MG TABLET PO SCH ×2 (09:13→16:34)
[2021-08-02] MEDS: SPIRONOLACTONE 50 MG TABLET PO SCH ×2 (09:13→16:34)
[2021-08-02 10:10] LABS: GLUCOMETER DEV NAME(LOC) POC.BV
[2021-08-02 16:17] VITALS: BP 112/76
[2021-08-03 00:54] VITALS: BP 116/78
[2021-08-03] MEDS: ARIPiprazole 15 MG TABLET PO SCH (08:39)
[2021-08-03] MEDS: SPIRONOLACTONE 50 MG TABLET PO SCH ×2 (08:39→16:21)
[2021-08-03] MEDS: DIVALPROEX SODIUM 500 MG DR TABLET PO SCH ×2 (08:39→20:32)
[2021-08-03] MEDS: LevETIRAcetam 250 MG TABLET PO SCH ×2 (08:40→16:21)
[2021-08-03] MEDS: MULTIVITAMINS, THERAPEUTIC TABLET PO SCH (08:44)
[2021-08-03 09:57] VITALS: BP 125/80
[2021-08-03 16:05] VITALS: BP 108/61
[2021-08-04 01:03] VITALS: BP 112/68
[2021-08-04 08:08] VITALS: BP 119/68
[2021-08-04] MEDS: MULTIVITAMINS, THERAPEUTIC TABLET PO SCH (08:44)
[2021-08-04] MEDS: DIVALPROEX SODIUM 500 MG DR TABLET PO SCH ×2 (08:44→20:24)
[2021-08-04] MEDS: ARIPiprazole 15 MG TABLET PO SCH (08:44)
[2021-08-04] MEDS: SPIRONOLACTONE 50 MG TABLET PO SCH ×2 (08:44→16:45)
[2021-08-04] MEDS: LevETIRAcetam 250 MG TABLET PO SCH ×2 (08:44→16:45)
[2021-08-04 16:07] VITALS: BP 120/69
[2021-08-04] MEDS: LORazepam 2 MG TABLET PO PRN (20:24)
[2021-08-05 00:06] VITALS: BP 109/61
[2021-08-05 08:20] VITALS: BP 116/68
[2021-08-05] MEDS: ARIPiprazole 15 MG TABLET PO SCH (08:23)
[2021-08-05] MEDS: SPIRONOLACTONE 50 MG TABLET PO SCH ×2 (08:24→16:30)
[2021-08-05] MEDS: DIVALPROEX SODIUM 500 MG DR TABLET PO SCH ×2 (08:24→20:28)
[2021-08-05] MEDS: LevETIRAcetam 250 MG TABLET PO SCH ×2 (08:24→16:30)
[2021-08-05] MEDS: MULTIVITAMINS, THERAPEUTIC TABLET PO SCH (08:27)
[2021-08-05 16:13] VITALS: BP 118/79
[2021-08-06 00:17] VITALS: BP 121/76
[2021-08-06 08:09] VITALS: BP 116/69
[2021-08-06] MEDS: ARIPiprazole 15 MG TABLET PO SCH (08:22)
[2021-08-06] MEDS: DIVALPROEX SODIUM 500 MG DR TABLET PO SCH ×2 (08:22→20:18)
[2021-08-06] MEDS: LevETIRAcetam 250 MG TABLET PO SCH ×2 (08:22→16:12)
[2021-08-06] MEDS: SPIRONOLACTONE 50 MG TABLET PO SCH ×2 (08:22→16:12)
[2021-08-06] MEDS: MULTIVITAMINS, THERAPEUTIC TABLET PO SCH (08:27)
[2021-08-06 16:02] VITALS: BP 110/62
[2021-08-07 00:12] VITALS: BP 129/80
[2021-08-07] MEDS: SPIRONOLACTONE 50 MG TABLET PO SCH ×2 (08:07→16:48)
[2021-08-07] MEDS: DIVALPROEX SODIUM 500 MG DR TABLET PO SCH ×2 (08:07→20:04)
[2021-08-07] MEDS: MULTIVITAMINS, THERAPEUTIC TABLET PO SCH (08:07)
[2021-08-07] MEDS: ARIPiprazole 15 MG TABLET PO SCH (08:07)
[2021-08-07] MEDS: LevETIRAcetam 250 MG TABLET PO SCH ×2 (08:07→16:48)
[2021-08-07 08:08] VITALS: BP 125/77
[2021-08-07 09:42] LABS: GLUCOMETER DEV NAME(LOC) POC.BV
[2021-08-07 16:47] VITALS: BP 110/62
[2021-08-08 01:39] VITALS: BP 95/68
[2021-08-08] MEDS: ARIPiprazole 15 MG TABLET PO SCH (07:58)
[2021-08-08] MEDS: LevETIRAcetam 250 MG TABLET PO SCH ×2 (07:58→16:11)
[2021-08-08] MEDS: SPIRONOLACTONE 50 MG TABLET PO SCH ×2 (07:58→16:11)
[2021-08-08] MEDS: DIVALPROEX SODIUM 500 MG DR TABLET PO SCH ×2 (07:58→20:41)
[2021-08-08 08:03] VITALS: BP 106/67
[2021-08-08] MEDS: MULTIVITAMINS, THERAPEUTIC TABLET PO SCH (09:54)
[2021-08-08 16:03] VITALS: BP 109/70
[2021-08-09 00:27] VITALS: BP 102/63
[2021-08-09] MEDS: LevETIRAcetam 250 MG TABLET PO SCH ×2 (07:35→16:04)
[2021-08-09] MEDS: ARIPiprazole 15 MG TABLET PO SCH (07:35)
[2021-08-09] MEDS: DIVALPROEX SODIUM 500 MG DR TABLET PO SCH ×2 (07:35→20:25)
[2021-08-09] MEDS: SPIRONOLACTONE 50 MG TABLET PO SCH ×2 (07:35→16:04)
[2021-08-09] MEDS: MULTIVITAMINS, THERAPEUTIC TABLET PO SCH (07:42)
[2021-08-09 08:04] VITALS: BP 104/70
[2021-08-09 16:17] VITALS: BP 112/62
[2021-08-10 00:18] VITALS: BP 129/89
[2021-08-10] MEDS: SPIRONOLACTONE 50 MG TABLET PO SCH ×2 (07:52→18:49)
[2021-08-10] MEDS: DIVALPROEX SODIUM 500 MG DR TABLET PO SCH ×2 (07:52→20:06)
[2021-08-10] MEDS: ARIPiprazole 15 MG TABLET PO SCH (07:52)
[2021-08-10] MEDS: LevETIRAcetam 250 MG TABLET PO SCH ×2 (07:53→18:49)
[2021-08-10] MEDS: MULTIVITAMINS, THERAPEUTIC TABLET PO SCH (07:54)
[2021-08-10 08:15] VITALS: BP 105/72
[2021-08-10 16:38] VITALS: BP 100/69
[2021-08-11 05:36] VITALS: BP 133/79
[2021-08-11] MEDS: MULTIVITAMINS, THERAPEUTIC TABLET PO SCH (08:19)
[2021-08-11] MEDS: DIVALPROEX SODIUM 500 MG DR TABLET PO SCH ×2 (08:19→20:09)
[2021-08-11] MEDS: SPIRONOLACTONE 50 MG TABLET PO SCH ×2 (08:19→17:14)
[2021-08-11] MEDS: LevETIRAcetam 250 MG TABLET PO SCH ×2 (08:19→17:14)
[2021-08-11] MEDS: ARIPiprazole 15 MG TABLET PO SCH (08:19)
[2021-08-11 08:25] VITALS: BP 100/77
[2021-08-11 18:43] VITALS: BP 105/62
[2021-08-12 00:05] VITALS: BP 98/58
[2021-08-12 08:07] VITALS: BP 113/69
[2021-08-12] MEDS: MULTIVITAMINS, THERAPEUTIC TABLET PO SCH (08:29)
[2021-08-12] MEDS: ARIPiprazole 15 MG TABLET PO SCH (08:29)
[2021-08-12] MEDS: LevETIRAcetam 250 MG TABLET PO SCH ×2 (08:30→16:34)
[2021-08-12] MEDS: SPIRONOLACTONE 50 MG TABLET PO SCH ×2 (08:30→16:33)
[2021-08-12] MEDS: DIVALPROEX SODIUM 500 MG DR TABLET PO SCH ×2 (08:30→20:08)
[2021-08-12 15:54] VITALS: BP 100/60
[2021-08-12 16:00] VITALS: BP 100/60
[2021-08-13 00:03] VITALS: BP 109/74
[2021-08-13 08:06] VITALS: BP 100/60
[2021-08-13] MEDS: DIVALPROEX SODIUM 500 MG DR TABLET PO SCH ×2 (08:16→20:36)
[2021-08-13] MEDS: LevETIRAcetam 250 MG TABLET PO SCH ×2 (08:16→16:35)
[2021-08-13] MEDS: ARIPiprazole 15 MG TABLET PO SCH (08:16)
[2021-08-13] MEDS: SPIRONOLACTONE 50 MG TABLET PO SCH ×2 (08:16→16:35)
[2021-08-13] MEDS: MULTIVITAMINS, THERAPEUTIC TABLET PO SCH (08:22)
[2021-08-13 17:45] VITALS: BP 96/63
[2021-08-14 00:15] VITALS: BP 110/72
[2021-08-14] MEDS: LevETIRAcetam 250 MG TABLET PO SCH ×2 (08:30→16:56)
[2021-08-14] MEDS: SPIRONOLACTONE 50 MG TABLET PO SCH ×2 (08:30→16:56)
[2021-08-14] MEDS: ARIPiprazole 15 MG TABLET PO SCH (08:30)
[2021-08-14] MEDS: DIVALPROEX SODIUM 500 MG DR TABLET PO SCH ×2 (08:30→20:32)
[2021-08-14] MEDS: MULTIVITAMINS, THERAPEUTIC TABLET PO SCH (08:35)
[2021-08-14 14:58] VITALS: BP 112/70
[2021-08-14 16:10] VITALS: BP 125/48
[2021-08-14 16:30] VITALS: BP 112/60
[2021-08-15 01:20] VITALS: BP 110/59
[2021-08-15 08:32] VITALS: BP 102/70
[2021-08-15] MEDS: DIVALPROEX SODIUM 500 MG DR TABLET PO SCH ×2 (08:49→20:44)
[2021-08-15] MEDS: LevETIRAcetam 250 MG TABLET PO SCH ×2 (08:49→17:35)
[2021-08-15] MEDS: ARIPiprazole 15 MG TABLET PO SCH (08:49)
[2021-08-15] MEDS: MULTIVITAMINS, THERAPEUTIC TABLET PO SCH (08:49)
[2021-08-15] MEDS: SPIRONOLACTONE 50 MG TABLET PO SCH ×2 (08:49→17:35)
[2021-08-15 13:46] LABS: GLUCOMETER DEV NAME(LOC) POC.BV
[2021-08-15 16:15] VITALS: BP 146/66
[2021-08-16 00:33] VITALS: BP 126/72
[2021-08-16] MEDS: ARIPiprazole 15 MG TABLET PO SCH (08:12)
[2021-08-16] MEDS: DIVALPROEX SODIUM 500 MG DR TABLET PO SCH ×2 (08:12→20:10)
[2021-08-16] MEDS: LevETIRAcetam 250 MG TABLET PO SCH ×2 (08:12→17:14)
[2021-08-16] MEDS: SPIRONOLACTONE 50 MG TABLET PO SCH ×2 (08:12→17:14)
[2021-08-16] MEDS: MULTIVITAMINS, THERAPEUTIC TABLET PO SCH (08:14)
[2021-08-16 08:18] VITALS: BP 106/63
[2021-08-16 16:23] VITALS: BP 97/69
[2021-08-16 17:24] VITALS: BP 110/63
[2021-08-16] MEDS: LORazepam 2 MG TABLET PO PRN (17:48)
[2021-08-17 00:51] VITALS: BP 117/68
[2021-08-17 08:11] VITALS: BP 101/62
[2021-08-17] MEDS: LevETIRAcetam 250 MG TABLET PO SCH ×2 (08:30→16:33)
[2021-08-17] MEDS: ARIPiprazole 15 MG TABLET PO SCH (08:30)
[2021-08-17] MEDS: DIVALPROEX SODIUM 500 MG DR TABLET PO SCH ×2 (08:30→20:51)
[2021-08-17] MEDS: MULTIVITAMINS, THERAPEUTIC TABLET PO SCH (08:31)
[2021-08-17] MEDS: SPIRONOLACTONE 50 MG TABLET PO SCH ×2 (08:31→16:33)
[2021-08-17 16:19] VITALS: BP 100/62
[2021-08-18 00:35] VITALS: BP 103/64
[2021-08-18] MEDS: LevETIRAcetam 250 MG TABLET PO SCH ×2 (08:26→16:17)
[2021-08-18] MEDS: ARIPiprazole 15 MG TABLET PO SCH (08:26)
[2021-08-18] MEDS: DIVALPROEX SODIUM 500 MG DR TABLET PO SCH ×2 (08:26→20:08)
[2021-08-18] MEDS: SPIRONOLACTONE 50 MG TABLET PO SCH ×2 (08:26→16:17)
[2021-08-18 08:27] VITALS: BP 104/65
[2021-08-18] MEDS: MULTIVITAMINS, THERAPEUTIC TABLET PO SCH (08:53)
[2021-08-18 16:07] VITALS: BP 103/62
[2021-08-19 00:15] VITALS: BP 110/68
[2021-08-19 08:09] VITALS: BP 101/63
[2021-08-19] MEDS: SPIRONOLACTONE 50 MG TABLET PO SCH ×2 (08:20→16:33)
[2021-08-19] MEDS: DIVALPROEX SODIUM 500 MG DR TABLET PO SCH ×2 (08:20→20:40)
[2021-08-19] MEDS: ARIPiprazole 15 MG TABLET PO SCH (08:21)
[2021-08-19] MEDS: LevETIRAcetam 250 MG TABLET PO SCH ×2 (08:21→16:33)
[2021-08-19] MEDS: MULTIVITAMINS, THERAPEUTIC TABLET PO SCH (08:21)
[2021-08-19 16:07] VITALS: BP 112/69
[2021-08-19] MEDS: LORazepam 2 MG TABLET PO PRN (17:18)
[2021-08-20 00:15] VITALS: BP 110/70
[2021-08-20 08:05] VITALS: BP 112/67
[2021-08-20] MEDS: ARIPiprazole 15 MG TABLET PO SCH (08:47)
[2021-08-20] MEDS: SPIRONOLACTONE 50 MG TABLET PO SCH ×2 (08:48→16:16)
[2021-08-20] MEDS: DIVALPROEX SODIUM 500 MG DR TABLET PO SCH ×2 (08:48→20:33)
[2021-08-20] MEDS: MULTIVITAMINS, THERAPEUTIC TABLET PO SCH (08:48)
[2021-08-20] MEDS: LevETIRAcetam 250 MG TABLET PO SCH ×2 (08:48→16:16)
[2021-08-20 16:06] VITALS: BP 103/69
[2021-08-21 00:34] VITALS: BP 106/65
[2021-08-21 08:30] VITALS: BP 110/60
[2021-08-21] MEDS: LevETIRAcetam 250 MG TABLET PO SCH ×2 (08:32→16:19)
[2021-08-21] MEDS: SPIRONOLACTONE 50 MG TABLET PO SCH ×2 (08:32→16:19)
[2021-08-21] MEDS: ARIPiprazole 15 MG TABLET PO SCH (08:32)
[2021-08-21] MEDS: DIVALPROEX SODIUM 500 MG DR TABLET PO SCH ×2 (08:32→20:08)
[2021-08-21] MEDS: MULTIVITAMINS, THERAPEUTIC TABLET PO SCH (08:34)
[2021-08-21 15:41] LABS: GLUCOMETER DEV NAME(LOC) POC.BV
[2021-08-21 16:06] VITALS: BP 98/64
[2021-08-22 00:10] VITALS: BP 110/64
[2021-08-22] MEDS: SPIRONOLACTONE 50 MG TABLET PO SCH ×2 (08:04→16:42)
[2021-08-22] MEDS: MULTIVITAMINS, THERAPEUTIC TABLET PO SCH (08:04)
[2021-08-22] MEDS: DIVALPROEX SODIUM 500 MG DR TABLET PO SCH ×2 (08:04→20:32)
[2021-08-22] MEDS: LevETIRAcetam 250 MG TABLET PO SCH ×2 (08:04→16:42)
[2021-08-22] MEDS: ARIPiprazole 15 MG TABLET PO SCH (08:04)
[2021-08-22 08:06] VITALS: BP 121/71
[2021-08-22] MEDS: LORazepam 2 MG TABLET PO PRN ×2 (12:56→22:57)
[2021-08-22 16:07] VITALS: BP 106/63
[2021-08-22 16:40] VITALS: BP 114/72
[2021-08-23 00:05] VITALS: BP 109/66
[2021-08-23 08:06] VITALS: BP 108/69
[2021-08-23] MEDS: MULTIVITAMINS, THERAPEUTIC TABLET PO SCH (08:40)
[2021-08-23] MEDS: LevETIRAcetam 250 MG TABLET PO SCH ×2 (08:40→16:47)
[2021-08-23] MEDS: ARIPiprazole 15 MG TABLET PO SCH (08:40)
[2021-08-23] MEDS: SPIRONOLACTONE 50 MG TABLET PO SCH ×2 (08:40→16:47)
[2021-08-23] MEDS: DIVALPROEX SODIUM 500 MG DR TABLET PO SCH ×2 (08:40→20:39)
[2021-08-23 16:10] VITALS: BP 107/63
[2021-08-23 16:17] VITALS: BP 115/70
[2021-08-24 00:40] VITALS: BP 112/68
[2021-08-24 08:15] VITALS: BP 109/60
[2021-08-24] MEDS: ARIPiprazole 15 MG TABLET PO SCH (09:05)
[2021-08-24] MEDS: SPIRONOLACTONE 50 MG TABLET PO SCH ×2 (09:06→17:23)
[2021-08-24] MEDS: DIVALPROEX SODIUM 500 MG DR TABLET PO SCH ×2 (09:06→20:34)
[2021-08-24] MEDS: LevETIRAcetam 250 MG TABLET PO SCH ×2 (09:06→17:23)
[2021-08-24 16:11] VITALS: BP 98/62
[2021-08-24 17:24] VITALS: BP 108/69
[2021-08-24] MEDS: LORazepam 2 MG TABLET PO PRN (19:52)
[2021-08-25 00:11] VITALS: BP 101/65
[2021-08-25 07:35] LABS: ANION GAP 5 mmol/L (8-16); CALCIUM, TOTAL 8.5 mg/dL (8.8-10.5); CARBON DIOXIDE 32 mmol/L (22-29); CHLORIDE 104 mmol/L (98-107); CREATININE 0.77 mg/dL (0.60-1.30); GLOMERULAR FILTR. RATE CALC > 60 mL/min (>60); GLUCOSE,RANDOM 99 mg/dL (70-110); POTASSIUM 4.6 mmol/L (3.5-5.1); SODIUM SERUM 141 mmol/L (136-145); UREA NITROGEN, BLOOD 16 mg/dL (7-18)
[2021-08-25 07:41] LABS: BASOPHILS % (AUTO) 0.6 % (0.0-2.0); EOSINOPHILS % (AUTO) 3.9 % (1.0-6.0); HEMATOCRIT 41.7 % (36-46); HEMOGLOBIN 14.4 g/dL (12.0-16.0); LYMPHOCYTES % (AUTO) 44.5 % (22.0-44.0); MEAN CORPUSCULAR HEMOGLOBIN 32.6 pg (26.0-34.0); MEAN CORPUSCULAR HGB CONC 34.6 G/dL (31.0-37.0); MEAN CORPUSCULAR VOLUME 94 fL (80-100); MONOCYTES # (AUTO) 0.2 K/uL (0.1-1.0); MONOCYTES % (AUTO) 5.2 % (2.0-9.0); NEUTROPHILS % (AUTO) 45.8 % (40.0-70.0); PLATELET COUNT (AUTO) 140 K/uL (150-450); RED BLOOD CELL COUNT(AUTO) 4.42 MIL/uL (4.00-5.20); RED CELL DISTRIBUTION WIDTH 12.7 % (11.5-14.5)
[2021-08-25 08:21] VITALS: BP 112/77
[2021-08-25] MEDS: LevETIRAcetam 250 MG TABLET PO SCH ×2 (08:51→16:34)
[2021-08-25] MEDS: SPIRONOLACTONE 50 MG TABLET PO SCH ×2 (08:51→16:34)
[2021-08-25] MEDS: DIVALPROEX SODIUM 500 MG DR TABLET PO SCH ×2 (08:51→20:18)
[2021-08-25] MEDS: ARIPiprazole 15 MG TABLET PO SCH (08:51)
[2021-08-25 16:22] VITALS: BP 98/60
[2021-08-26 00:29] VITALS: BP 110/69
[2021-08-26] MEDS: DIVALPROEX SODIUM 500 MG DR TABLET PO SCH ×2 (08:21→20:07)
[2021-08-26] MEDS: ARIPiprazole 15 MG TABLET PO SCH (08:21)
[2021-08-26] MEDS: SPIRONOLACTONE 50 MG TABLET PO SCH ×2 (08:21→17:37)
[2021-08-26] MEDS: LevETIRAcetam 250 MG TABLET PO SCH ×2 (08:21→17:37)
[2021-08-26 09:06] VITALS: BP 110/72
[2021-08-26 16:11] VITALS: BP 103/69
[2021-08-26 17:36] VITALS: BP 110/74
[2021-08-27 02:03] VITALS: BP 101/63
[2021-08-27 07:09] LABS: COVID AG,FIA SOURCE NASOPHARYNGEAL
[2021-08-27 08:21] VITALS: BP 131/80
[2021-08-27] MEDS: DIVALPROEX SODIUM 500 MG DR TABLET PO SCH ×2 (08:49→20:30)
[2021-08-27] MEDS: SPIRONOLACTONE 50 MG TABLET PO SCH ×2 (08:49→18:21)
[2021-08-27] MEDS: LevETIRAcetam 250 MG TABLET PO SCH ×2 (08:49→18:21)
[2021-08-27] MEDS: ARIPiprazole 15 MG TABLET PO SCH (08:50)
[2021-08-27 16:07] VITALS: BP 99/71
[2021-08-27 18:22] VITALS: BP 112/73
[2021-08-28 04:03] VITALS: BP 110/68
[2021-08-28] MEDS: DIVALPROEX SODIUM 500 MG DR TABLET PO SCH ×2 (07:40→20:33)
[2021-08-28] MEDS: LevETIRAcetam 250 MG TABLET PO SCH ×2 (07:40→16:27)
[2021-08-28] MEDS: ARIPiprazole 15 MG TABLET PO SCH (07:40)
[2021-08-28] MEDS: SPIRONOLACTONE 50 MG TABLET PO SCH ×2 (07:40→16:27)
[2021-08-28 08:16] VITALS: BP 117/74
[2021-08-28 16:04] VITALS: BP 112/73
[2021-08-29 05:56] VITALS: BP 107/87
[2021-08-29] MEDS: LevETIRAcetam 250 MG TABLET PO SCH ×2 (06:52→16:32)
[2021-08-29] MEDS: SPIRONOLACTONE 50 MG TABLET PO SCH ×2 (06:52→16:32)
[2021-08-29] MEDS: DIVALPROEX SODIUM 500 MG DR TABLET PO SCH ×2 (06:52→20:35)
[2021-08-29] MEDS: ARIPiprazole 15 MG TABLET PO SCH (06:53)
[2021-08-29 08:09] VITALS: BP 111/75
[2021-08-29] MEDS: LORazepam 2 MG TABLET PO PRN (14:06)
[2021-08-29 16:03] VITALS: BP 113/73
[2021-08-30 00:18] VITALS: BP 120/81
[2021-08-30] MEDS: ARIPiprazole 15 MG TABLET PO SCH (08:04)
[2021-08-30] MEDS: LevETIRAcetam 250 MG TABLET PO SCH ×2 (08:05→16:47)
[2021-08-30] MEDS: DIVALPROEX SODIUM 500 MG DR TABLET PO SCH ×2 (08:05→20:03)
[2021-08-30] MEDS: SPIRONOLACTONE 50 MG TABLET PO SCH ×2 (08:05→16:47)
[2021-08-30 08:08] VITALS: BP 125/76
[2021-08-30 16:34] VITALS: BP 110/86
[2021-08-30] MEDS: LORazepam 2 MG TABLET PO PRN (22:49)
[2021-08-31 00:20] VITALS: BP 115/79
[2021-08-31 08:02] VITALS: BP 107/75
[2021-08-31] MEDS: SPIRONOLACTONE 50 MG TABLET PO SCH ×2 (08:31→16:33)
[2021-08-31] MEDS: ARIPiprazole 15 MG TABLET PO SCH (08:31)
[2021-08-31] MEDS: LevETIRAcetam 250 MG TABLET PO SCH ×2 (08:32→16:33)
[2021-08-31] MEDS: DIVALPROEX SODIUM 500 MG DR TABLET PO SCH ×2 (08:32→20:38)
[2021-08-31 16:12] VITALS: BP 123/81
[2021-09-01 00:47] VITALS: BP 119/77
[2021-09-01] MEDS: LORazepam 2 MG TABLET PO PRN (01:51)
[2021-09-01 08:05] VITALS: BP 107/74
[2021-09-01] MEDS: ARIPiprazole 15 MG TABLET PO SCH (09:23)
[2021-09-01] MEDS: LevETIRAcetam 250 MG TABLET PO SCH ×2 (09:23→17:23)
[2021-09-01] MEDS: DIVALPROEX SODIUM 500 MG DR TABLET PO SCH ×2 (09:24→20:21)
[2021-09-01] MEDS: SPIRONOLACTONE 50 MG TABLET PO SCH ×2 (09:24→17:23)
[2021-09-01 16:08] VITALS: BP 125/93
[2021-09-02 03:08] VITALS: BP 114/81
[2021-09-02] MEDS: SPIRONOLACTONE 50 MG TABLET PO SCH (08:10)
[2021-09-02] MEDS: ARIPiprazole 15 MG TABLET PO SCH (08:10)
[2021-09-02] MEDS: LevETIRAcetam 250 MG TABLET PO SCH (08:10)
[2021-09-02] MEDS: DIVALPROEX SODIUM 500 MG DR TABLET PO SCH (08:10)
[2021-09-02 08:16] VITALS: BP 117/81
[2021-09-02 09:46] LABS: GLUCOMETER DEV NAME(LOC) POC.BV
== END 2021-09-02 13:00 | DRG 885 ==
LOC: B2S 18:48 → B2X 07-08 08:20 → B2S 07-23 06:46
PROVIDERS: ADMIT Psychiatry & Neurology Psychiatry; ATTEND Psychiatry & Neurology Psychiatry
DX: F25.0 Schizoaffective disorder, bipolar type (principal); F15.10 Other stimulant abuse, uncomplicated; G40.909 Epilepsy, unspecified, not intractable, without status epilepticus; G44.209 Tension-type headache, unspecified, not intractable; Z20.822 Contact with and (suspected) exposure to COVID-19; K59.00 Constipation, unspecified; Z59.00 Homelessness unspecified; Z88.8 Allergy status to other drugs, medicaments and biological substances
CPT/HCPCS: 80048; 80053; 80061; 80164; 83036; 84439; 84443; 84702; 85025; 87081